=== PATIENT | female | born 1955 | race African-American/Black ===

== ENCOUNTER 2016-09-27 08:54 | Inpatient (IN) | payer MEDICARE, OTHER ==
--- NOTE | ~2016-09-27 | CR106 ---
[facility] A Service of [facility] & [facility] RADIOLOGY TEXT RESULTS PATIENT: SHABNAM MCCARTY LOCATION: [place] [address] : [birth year] UNIT #: [id number] AGE: [address]: Ling Mendez MD SEX: F ORDER DR: [id number] [place] [id number] E MR#: [id number] Acc #: [id number] NAME: SHABNAM MCCARTY : 1955 SEX: F STUDY DATE/TIME: 09/27/2016 10:13 UNIT: SED ROOM: STUDY DESCRIPTION: CR Femur 2 Views Lt Attending Physician: Osvaldo Crowe Ordering Physician: Osvaldo Crowe Primary Care Physician: Karolina Ramesh A.P.R.N. MEDICAL IMAGING REPORT This report is preliminary unless electronic signature is present. EXAM Left femur series INDICATIONS Confusion with left leg pain today. PROCEDURE 5 views of the left femur COMPARISON 05/20/2016 FINDINGS No acute findings. Previous plate and screw fixation of left acetabulum and a left hip prosthesis in place. IMPRESSION No acute findings. Dictated by... Mazin Davis M.D. THIS IS AN ELECTRONICALLY VERIFIED REPORT Mazin Davis M.D. at 09/28/2016 9:43 AM Darwin TD: 09/27/2016 12:56 JOB #: [id number] MEDICAL IMAGING REPORT Page 1 of 1
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
--- NOTE | ~2016-09-27 | CO ---
Unit #: [id number] #: [id number] Patient: SHABNAM MCCARTY [id number] [address] [address] [id number] I MR#: [id number] NAME: SHABNAM MCCARTY. ROOM: [facility] Age: 61 Sex: F Admission Date: 09/27/2016 : 1955 Attending Physician: Ling Mendez M.D. Primary Care Physician: Karolina Ramesh A.P.R.N. Consultation Date: 09/28/2016 CONSULTATION REPORT CHIEF COMPLAINT Left lower extremity pain. HISTORY OF PRESENT ILLNESS Ms. Mccarty is a 61-year-old female who has been admitted with mental status changes after being found confused at home in her own urine, unable to ambulate. She had a positive alcohol tox screen. In the hospital, she has been complaining of pain in her left lower extremity which she states is the primary cause for her frequent falls and inability to ambulate reliably. Orthopedic consultation has been requested. The patient is currently seen and examined lying supine on her hospital bed. She complained of pain in her left lower extremity but is overall comfortable appearing. She states that the pain is worse with attempted weightbearing. It is relieved with rest, immobilization, and pain medication. The patient has been drinking daily lately. She reports history of depression as well as frequent falls. She ambulates with a cane or walker but still has difficulty. PAST MEDICAL HISTORY 1. COPD. 2. Hypertension. 3. Hyperlipidemia. PAST SURGICAL HISTORY 1. Intramedullary nailing of a right subtrochanteric femur fracture in 2011. 2. Status post left total hip arthroplasty as well as ORIF of acetabular fracture. 3. Status post ORIF, left tibial plateau fracture. 4. Status post closed treatment of long-leg cast of left distal femur fracture. 5. Colonoscopy with polypectomy in 2010. MEDICATIONS Home medications are reviewed and include: 1. Desyrel. 2. Zyloprim. 3. Gabapentin. 4. [place]. 5. Lipitor. 6. Bystolic. Unit #: [id number] #: [id number] Patient: SHABNAM MCCARTY 7. Lisinopril. SOCIAL HISTORY She lives at home. Recently, her son and grandchild moved in. She has been drinking daily. She has no tobacco or illicit drug use. ALLERGIES No known drug allergies. FAMILY HISTORY Noncontributory to current illness. REVIEW OF SYSTEMS Positive for depression, frequent falls, alcohol abuse, left lower extremity pain. PHYSICAL EXAMINATION GENERAL APPEARANCE: Appears older than stated age with significant muscle wasting of the lower extremities. PSYCHIATRIC: Awake, alert, and oriented to person, place, and time. HEENT: Normocephalic and atraumatic cranium. Pupils equal, round, and reactive to light. CARDIAC: Regular rate and rhythm. PULMONARY: No increased work of breathing. Symmetric chest rise. ABDOMEN: Soft, nontender, nondistended. NEUROLOGIC: Moves all extremities well. No focal deficits. Intact motor function L2-S1 in the bilateral lower extremities. SKIN: There are no overlying contusions, lacerations, or open injuries. VASCULAR: Her feet are warm and well perfused, brisk capillary refill. LYMPHATIC: There is no lymph edema or lymphadenopathy noted. MUSCULOSKELETAL: She has no pain with log rolling of the left lower extremity and internal and external rotation. There is no pain with passive range of motion of the knee. She has full range of motion of the knee essentially from full extension to 120 degrees of flexion. There is no obvious deformity both palpably and visibly over the patella. She has no pain with passive range of motion of the hip and hip flexion and internal/external rotation. She has marked muscle wasting and atrophy lower extremities. She is able to perform a straight leg raise independently off the bed without pain or difficulty. DIAGNOSTIC STUDIES IMAGING: Plain film radiographs reviewed of the left lower extremity. These demonstrate previous total hip arthroplasty with what appears to be an ORIF of the posterior wall fracture of the acetabulum. Additionally, she is status post ORIF of left tibial plateau fracture and has changes from a previous closed treatment of a left distal femur fracture. Despite this, all the hardware appears intact and unremarkable. There is no evidence of loosening of the arthroplasty or of any of the hardware in the tibia. Overall alignment is anatomic. IMPRESSION A 61-year-old female with history of alcohol abuse, significant muscle wasting with left lower extremity pain in the setting of prior multiple orthopedic interventions on the left lower extremity including left total hip replacement, open reduction internal fixation of the left acetabular posterior wall fracture, closed treatment of a left distal femur fracture, and open reduction internal fixation of left tibial plateau fracture all remotely. Unit #: [id number] #: [id number] Patient: SHABNAM MCCARTY PLAN Upon physical exam and radiographic review, all of her orthopedic hardware appears intact without any evidence of hardware related complications. The fractures are all well healed. She has a chronic deformity of the patella which may contribute to some of her pain. At the current time, there is no orthopedic indication for limited or protected weightbearing. She may weightbear as tolerated on the effected extremity. I think her pain most likely is related to her multiple prior surgical interventions. She would benefit most likely from postoperative rehab placement due to her profound muscle atrophy and need for assistive devices for ambulation. We will continue to follow the patient with you. Thank you for the consult. Dictated by... Darren Garcia M.D. SOLEDAD/rachell TD: 09/29/2016 15:53 JOB #: [id number] CONSULTATION REPORT Page 1 of 1 X Darren Garcia MD X CONSULTATION REPORT
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
--- NOTE | ~2016-09-27 | CO ---
Unit #: [id number] #: [id number] Patient: SHABNAM MCCARTY [id number] [address] [address] [id number] I MR#: [id number] NAME: SHABNAM MCCARTY. ROOM: 339 Age: 61 Sex: F Admission Date: 09/27/2016 : 1955 Attending Physician: Ling Mendez M.D. Primary Care Physician: Karolina Ramesh A.P.R.N. Consultation Date: 09/29/2016 CONSULTATION REPORT DISCUSSION Ms. Shabnam Mccarty is a 61-year-old female, seen on 09/29/2016 in room 339, bed 1 at [facility]. The patient was pleasant and cooperative, dressed neatly, sitting comfortably in chair. Reports that she is feeling better. Medication helping her. Denied any hallucination. The patient denied any complaints. The patient's vital signs; temperature 97.9, pulse 85, respirations 18, blood pressure 109/64, oxygen saturation 96%. MENTAL STATUS EXAMINATION General appearance; the patient dressed casually, sitting comfortably in chair. Attention span and concentration, fair. Speech, regular rate. Oriented in time, place, and person. Mood and affect were sad and dysphoric, but able to smile. Thought process, coherent. Thought content, the patient denied any thoughts of harming self or others. Denied any hallucination. Recent and remote memory, fair. Language, intact. Fund of knowledge, fair. Insight and judgment, fair to slightly impaired. DIAGNOSES 1. Alcohol use disorder, severe, F10.20. 2. Mood disorder, not otherwise specified, F32.9. ASSESSMENT/PLAN 1. Supportive psychotherapy and psychoeducation provided to the patient. 2. Educated about benefits and side effects of medication and course and prognosis of illness. 3. Advised to continue with current medication and advised the patient to follow up at [facility] upon discharge. Please feel free to call if any questions telephone #[phone]. Dictated by... Thang Freedman M.D. JS/jeffry TD: 09/29/2016 23:54 JOB #: [id number] Unit #: [id number] #: [id number] Patient: SHABNAM MCCARTY CONSULTATION REPORT Page 1 of 1 X Thang Freedman MD CONSULTATION REPORT
--- NOTE | ~2016-09-27 | EKG ---
PATIENT: SHABNAM MCCARTY UNIT #: [id number] Ventricular Rate: 125 BPM Atrial Rate: 125 BPM P-R Interval: 126 ms QRS Duration: 86 ms Q-T Interval: 332 ms QTC Calculation(Bezet): 479 ms P [place]: 65 degrees Calculated R [place]: 45 degrees Calculated T [place]: 36 degrees Diagnosis Line: Sinus tachycardia Diagnosis Line: Left ventricular hypertrophy with repolarization Diagnosis Line: abnormality Diagnosis Line: Abnormal ECG Diagnosis Line: When compared with ECG of 10-APR-2016 19:37, Diagnosis Line: No significant change was found Diagnosis Line: Confirmed by MONICA MCADAMS MD ([id number]) on Diagnosis Line: 09/28/2016 7:18:36 AM INTERPRETING MD: PAULA
--- NOTE | ~2016-09-27 | OR ---
Unit #: [id number] #: [id number] Patient: SHABNAM MCCARTY [id number] [address] [address] [id number] I MR#: [id number] NAME: SHABNAM MCCARTY. ROOM: [facility] Date of Procedure: 09/28/2016 Admission Date: 09/27/2016 Surgeon: Jose Rafael Soto M.D. : 1955 Attending Physician: Ling Mendez M.D. Primary Care Physician: Karolina Ramesh A.P.R.N. OPERATIVE REPORT PREOPERATIVE DIAGNOSIS Coffee-ground emesis. POSTOPERATIVE DIAGNOSIS Coffee-ground emesis. PROCEDURES PERFORMED 1. Esophagogastroduodenoscopy. 2. Biopsy of antrum for Helicobacter pylori testing. ANESTHESIA Monitored anesthesia care. FINDINGS The patient was found to have mild duodenitis and mild gastritis. No blood was present in the stomach or duodenum. SPECIMENS Sent to pathology. COMPLICATIONS None apparent. CONDITION The patient tolerated the procedure well. INDICATIONS FOR PROCEDURE The patient is a 60-year-old black female who recently had coffee-grounds emesis. She presents at this time for evaluation by upper endoscopy. DESCRIPTION OF PROCEDURE After obtaining informed consent, the patient was brought to the endoscopy suite and after adequate monitored anesthesia care, I had the endoscope placed through the mouth and into the upper esophagus under direct vision. It was advanced to the second portion of the duodenum without difficulty with the lumen always in view. Second and third portion of the duodenum had some mild duodenitis as was the duodenal bulb, but no other abnormalities were seen. The pylorus opened normally. There was some mild distal gastritis present and a biopsy was obtained for Helicobacter pylori testing. On retroflexion back to the GE junction, no abnormalities were found in the proximal third, middle third, or incisura. On pulling back above the GE junction, there was no stenosis, stricture, or neoplasm Unit #: [id number] #: [id number] Patient: SHABNAM MCCARTY seen. There was no distal esophagitis. The remaining portion of the esophagus was within normal limits. Laryngeal structures were grossly normal as viewed from above. The patient tolerated the procedure well and went from the endoscopy suite to recovery area in stable condition. RECOMMENDATIONS Resume preop orders and medications. Continue omeprazole. Dictated by... Maritza Laguna/jeffry TD: 09/28/2016 14:46 JOB #: [id number] CC: [facility] OPERATIVE REPORT Page 1 of 1 X Jose Rafael Soto MD X PROCEDURE OPERATIVE NOTE
--- NOTE | ~2016-09-27 | CT71 ---
[facility] A Service of [facility] & [facility] RADIOLOGY TEXT RESULTS PATIENT: SHABNAM MCCARTY LOCATION: [place] [address]- : [birth year] UNIT #: [id number] AGE: [address]: Ling Mendez MD SEX: F ORDER DR: [id number] [place] [id number] E MR#: [id number] Acc #: [id number] NAME: SHABNAM MCCARTY : 1955 SEX: F STUDY DATE/TIME: 09/27/2016 10:02 UNIT: SED ROOM: STUDY DESCRIPTION: CT Head Wo Contrast Attending Physician: Osvaldo Crowe Ordering Physician: Osvaldo Crowe Primary Care Physician: Karolina Ramesh A.P.R.N. MEDICAL IMAGING REPORT This report is preliminary unless electronic signature is present. EXAM CT head without contrast INDICATIONS Confusion today. PROCEDURE Unenhanced CT of the head COMPARISON 08/19/2011 FINDINGS No acute hemorrhage, abnormal mass effect, extraaxial collection or hydrocephalus. No convincing evidence for acute or early subacute large territory infarct. No calvarial fracture. Paranasal sinuses and mastoid air cells are clear. IMPRESSION No acute intracranial findings. Dictated by... Mazin Davis M.D. THIS IS AN ELECTRONICALLY VERIFIED REPORT Mazin Davis M.D. at 09/28/2016 9:43 AM FLORA/camryn TD: 09/27/2016 12:54 JOB #: [id number] MEDICAL IMAGING REPORT Page 1 of 1
--- NOTE | ~2016-09-27 | CR72 ---
[facility] A Service of [facility] & [facility] RADIOLOGY TEXT RESULTS PATIENT: SHABNAM MCCARTY LOCATION: [place] [address] : [birth year] UNIT #: [id number] AGE: [address]: Ling Mendez MD SEX: F ORDER DR: [id number] [place] [id number] E MR#: [id number] Acc #: [id number] NAME: SHABNAM MCCARTY : 1955 SEX: F STUDY DATE/TIME: 09/27/2016 10:13 UNIT: SED ROOM: STUDY DESCRIPTION: CR Chest Single View Portable Attending Physician: Osvaldo Crowe Ordering Physician: Osvaldo Crowe Primary Care Physician: Karolina Ramesh A.P.R.N. MEDICAL IMAGING REPORT This report is preliminary unless electronic signature is present. EXAM Portable chest. INDICATIONS Confusion today. PROCEDURE Frontal view chest. COMPARISON 03/02/2012 FINDINGS Heart size stable. Stable elevated left hemidiaphragm. There is no new dense consolidation or pneumothorax. IMPRESSION No acute change from 03/02/2012. Dictated by... Mazin Davis M.D. THIS IS AN ELECTRONICALLY VERIFIED REPORT Mazin Davis M.D. at 09/28/2016 9:43 AM FLORA/camryn TD: 09/27/2016 12:58 JOB #: [id number] MEDICAL IMAGING REPORT Page 1 of 1
--- NOTE | ~2016-09-27 | DS ---
Unit #: [id number] #: [id number] Patient: SHABNAM MCCARTY [id number] [address] [address] [id number] I MR#: [id number] NAME: SHABNAM MCCARTY. ROOM: 339 Age: 61 Sex: F Admission Date: 09/27/2016 : 1955 Discharge Date: 09/29/2016 Attending Physician: Ling Mendez M.D. Primary Care Physician: Karolina Ramesh A.P.R.N. DISCHARGE SUMMARY FINAL DIAGNOSES 1. Coffee-ground emesis. Status post EGD which shows mild duodenitis and mild gastritis. Patient was seen by [facility] and had an EGD done. Findings are as above. Patient is being placed on proton pump inhibitor. The patient's hemoglobin is stable, it is 10.0 and she had thrombocytopenia. There is a possibility of thrombocytopenia secondary to alcohol abuse that may need to be observed as outpatient. 2. Alcohol abuse. Patient on admission was placed in alcohol withdrawal protocol. The patient's alcohol level was above 200. Patient has been advised. Counseling has been done. Dr. Freedman evaluated the patient. Patient has been started on thiamine and folic acid. She does verbalize understanding. 3. Hypertension. Seems to be stable. The patient's medications were adjusted during hospitalization. Please refer to med rec. 4. Depression. Patient was seen by Dr. Thang Freedman for alcohol abuse/withdrawal and depression. Patient was diagnosed with alcohol use disorder, severe and mood disorder. Patient was started on Celexa 20 mg daily for depression and Vistaril 25 mg t.i.d. for anxiety. Patient did receive Haldol during hospitalization for psychosis. Some of the medications are being continued. Patient may need to follow up with psychiatrist as outpatient. 5. Altered mental status. Patient did have confusion and altered mental status on admission. There is a possibility that was secondary to alcohol intoxication. 6. Chronic obstructive pulmonary disease which is stable during hospitalization. 7. Left lower extremity. Patent did complain of left lower extremity pain. She had multiple surgeries in the lower extremities. She was seen by Orthopedics during hospitalization and advised to continue PT/OT. PT/OT needs to be continued as an outpatient. PT/OT has evaluated the patient. Patient is at her functional baseline. She will need to use cane or walker at home. That was discussed with patient. CONSULTATIONS DURING HOSPITALIZATION 1. Dr. Jose Rafael Soto from surgery services. 2. Dr. Thang Freedman from psych services 3. Dr. Garcia from ortho services. PROCEDURE PERFORMED DURING HOSPITALIZATION EGD which showed mild duodenitis and mild gastritis. No blood was present in the stomach or duodenum. Unit #: [id number] #: [id number] Patient: SHABNAM MCCARTY DIAGNOSTIC STUDIES LABORATORY: Workup on discharge: Sodium 136, potassium 3.7, Chloride 107, BUN 6, creatinine 0.6, calcium 8.6; CBC shows WBC 8.6, hemoglobin 10.0, hematocrit 31.4 and a platelet count of 67. RPR was nonreactive. Urine culture count less than 10,000. TSH showed 0.41. Troponin 0.03. Ammonia 38 on admission. Please note patient did receive IV Rocephin during hospitalization because there was a question of UTI. Patient had 2+ bacteria. All the urine culture is negative and that has been discontinued. PHYSICAL EXAMINATION ON DISCHARGE VITAL SIGNS: Blood pressure 109/64. Respiratory rate 18. Pulse is 85. Temperature 97.9. CHEST: Has fair air entry, no additional sounds. CVS: Regular rhythm. ABDOMEN: Abdomen is soft, no tenderness. DISCHARGE INSTRUCTIONS 1. Patient is being discharged home in stable condition. 2. Home health services are consulted for home care, PT, OT at home. 3. Follow up with primary care provider in one week. 4. CBC and BMP to be done in one week. 5. Alcohol cessation counseling has been done. DISCHARGE MEDICATIONS 1. Folic acid 1 mg p.o. daily. 2. Thiamin 100 mg p.o. daily, 3. Desyrel 50 mg q.h.s. 4. Celexa 20 mg q.h.s. 5. Neurontin 300 mg q.i.d. 6. Vistaril 25 mg t.i.d. p.r.n. 7. Protonix 40 mg daily. 8. Hydrocodone continue home dose. 9. Zyloprim continue home dose. 10. Zestril 10 mg daily. 11. Lipitor continue home dose. 12. Bystolic 10 mg daily. Dictated by... Maritza Kang/evangelina TD: 09/29/2016 21:05 JOB #: [id number] Unit #: [id number] #: [id number] Patient: BIBIANASHABNAM B DISCHARGE SUMMARY Page 1 of 1 X Ling Mendez MD X DISCHARGE SUMMARY
--- NOTE | ~2016-09-27 | EKG ---
PATIENT: SHABNAM MCCARTY UNIT #: [id number] Ventricular Rate: 114 BPM Atrial Rate: 114 BPM P-R Interval: 130 ms QRS Duration: 84 ms Q-T Interval: 328 ms QTC Calculation(Bezet): 452 ms P Honeydew: 57 degrees Calculated R Honeydew: 54 degrees Calculated T Honeydew: 70 degrees Diagnosis Line: Improper precordial lead postitioning Diagnosis Line: Sinus tachycardia Diagnosis Line: Left ventricular hypertrophy Diagnosis Line: Abnormal ECG Diagnosis Line: When compared with ECG of 10-APR-2016 19:37, Diagnosis Line: Repeat ECG Diagnosis Line: Confirmed by MONICA MCADAMS MD ([id number]) on Diagnosis Line: 09/29/2016 6:40:07 AM INTERPRETING SHARMAINE MITCHELL
--- NOTE | ~2016-09-27 | CO ---
Unit #: [id number] #: [id number] Patient: SHABNAM MCCARTY [id number] [facility]. [place], [place] [address] [id number] I MR#: [id number] NAME: SHABNAM MCCARTY. ROOM: 339 Age: 61 Sex: F Admission Date: 09/27/2016 : 1955 Attending Physician: Ling Mendez M.D. Primary Care Physician: Karolina Ramesh A.P.R.N. Consultation Date: 09/27/2016 CONSULTATION REPORT REASON FOR ADMISSION Alcohol abuse, withdrawal. HISTORY OF PRESENT ILLNESS Ms. Shabnam Mccarty is a 61-year-old female seen in room 339, bed 1 at [facility] on 09/27/16. Patient was admitted with confusion and altered mental status. Patient came to the emergency room with altered mental status and confusion. Patient was found to be in her urine and would not ambulated. Patient admitted using alcohol on a daily basis. Patient reported feeling sad and depressed and drinking on a daily basis. Patient denied any use of any street drugs. Patient has a history of COPD, hypertension, and hyperlipidemia. Patient denied any suicidal or homicidal ideation. Denied any psychotic symptoms, except seeing objects in her peripheral vision. PAST PSYCHIATRIC HISTORY Remarkable for a history of depression and alcohol abuse. No history of any suicide attempts. MEDICAL HISTORY Remarkable for history of COPD, hypertension, hyperlipidemia, and left distal femoral fracture in April 2015. MEDICATIONS Patient is on: 1. Desyrel. 2. Zyloprim. 3. Gabapentin. 4. [place]. 5. Lipitor. FAMILY HISTORY AND SOCIAL HISTORY Patient reported that she has support from her family. No history of any abuse. History of alcohol abuse, against medical advice. Denied any use of any street drugs. Patient's urine drug screen was positive for opiates. Patient is prescribed [place]. REVIEW OF SYSTEMS Complete review of systems is remarkable for withdrawal symptoms from alcohol, anxiety, nervousness, shakiness, tremors, mood lability, anxiety, and depression. MENTAL STATUS EXAMINATION VITAL SIGNS: 99.3, 18, 122/64, height ____, oxygen saturation 95%. Unit #: [id number] #: [id number] Patient: SHABNAM MCCARTY GENERAL APPEARANCE: Patient dressed casually in hospital attire. ATTENTION SPAN AND CONCENTRATION: Fair. SPEECH: Regular rate, coherent. ORIENTATION: Oriented in time, place, and person. MOOD AND AFFECT: Sad, dysphoric. THOUGHT PROCESS: Coherent. THOUGHT CONTENT: Patient denied any thoughts of harming self or others, but having visual hallucinations. Denied any auditory hallucinations. RECENT AND REMOTE MEMORY: Fair. LANGUAGE: Intact. FUND OF KNOWLEDGE: Fair. INSIGHT AND JUDGEMENT: Fair to slightly impaired. DIAGNOSES PSYCHIATRIC 1. Alcohol use disorder, severe, F10.20. 2. Mood disorder, NOS, F32.9. SECONDARY DIAGNOSIS: Deferred. MEDICAL DIAGNOSIS: Please refer to H and P. STRESSORS: Psychosocial stressors. ASSESSMENT/PLAN 1. Supportive psychotherapy and psychoeducation provided to patient. 2. Educated about benefits and side effects of medication and course and prognosis of illness. Advised Celexa 20 mg daily for depression, trazodone 50 mg at bedtime for sleep, Vistaril 25 mg 3 times a day for anxiety, and haloperidol 2 mg twice daily for psychosis. We will continue to follow. Please feel free to call if any questions. Telephone number . Dictated by... Maritza Leary/gerald TD: 09/29/2016 08:54 JOB #: [id number] CONSULTATION REPORT Page 1 of 1 X Thang Freedman MD X CONSULTATION REPORT
[~2016-09-27 08:54] MED LIST: ALPRAZOLAM PO; ASPIRIN PO; ASPIRIN81 M1 PO; BACLOFEN10 MG PO; BYSTOLIC10 MG PO; CIPRO250 MG PO; CRESTOR PO; DESYREL50 M1 PO; DESYREL50 MG; FLAGYL PO; FLEXERIL10 MG PO; GABAPENTIN300 M2 PO; GABAPENTIN300 MG PO; HCTZ PO; HYDROCODON-ACE1 EAC4 PO; IBUPROFEN800 MG; IBUPROFEN800 MG PO; LIPITOR PO; LISINOPRIL-HCTZ1 T16 PO; LISINOPRIL20 MG PO; LORTAB 10-5001 EACH PO; LORTAB 10/500 T1 TAB PO; LORTAB 5/500 TA1 TA1 PO; METHYLPREDNISOLO4 MG PO; NAPROXEN SODIU500 MG PO; NEURONTIN PO; NEURONTIN300 MG PO; NORCO 10-325 TA1 TAB PO; NORCO 10/325 TA1 TAB PO; NORCO 10/3251 TAB PO; PRAVACHOL PO; PRAVACHOL80 MG PO; PRAVASTATIN SOD40 MG PO; PRINIVIL20 M1 PO; TRAZODONE; ULTRAM PO; VIBRAMYCIN100 M1 PO; VICODIN 5/1 TAB 5/50 PO; ZESTORETIC 20/21 TAB PO; ZYLOPRIM
[2016-09-27 09:26] LABS: BASOPHIL# 0.1 X10e3 (0-0.3); BASOPHIL% 1.4 % (0-2.5); EOSINOPHIL% 0.2 % (0.0-7.0); HEMATOCRIT 38.5 % (35.0-45.0); HEMOGLOBIN 12.2 gm/dL (12.0-16.0); LYMPHOCYTE# 1.7 X10e3 (1.0-3.5); LYMPHOCYTE% 20.9 % (17.0-45.0); MEAN CELL VOLUME 90.9 FL (83-96); MEAN CORPUSCULAR HEMOGLOBIN 28.9 PG (28-34); MEAN CORPUSCULAR HGB CONC 31.8 g/dL (30-36); MEAN PLATELET VOLUME 7.4 FL (6.5-11.5); MONOCYTE# 0.4 X10e3 (0-1.0); NEUTROPHIL# 5.9 X10e3 (1.5-7.1); NEUTROPHIL% 72.5 % (40-75); PLATELET COUNT 124 X10e3 (140-420); RED BLOOD COUNT 4.23 X10e (3.90-5.30); RED CELL DISTRIBUTION WIDTH 22.5 % (11.0-15.5); WHITE BLOOD COUNT 8.1 X10e3 (4.0-10.5)
[2016-09-27 09:29] LABS: DIFF IND NO
[2016-09-27 09:41] LABS: INR 0.9; PROTHROMBIN TIME (PATIENT) 9.6 SECONDS (9.5-12.4)
[2016-09-27 09:42] LABS: POC - CKMB 1.3 ng/mL (0.0-7.9); POC - TROPONIN <0.05 ng/mL (<=0.05)
[2016-09-27 09:51] LABS: URINE SOURCE CLEAN CATCH
[2016-09-27 09:52] LABS: ALBUMIN SERUM 4.3 g/dL (3.5-5.0); ALKALINE PHOSPHATASE 76 U/L (32-92); ALT (SGPT) 12 U/L (10-40); AST (SGOT) 26 U/L (10-42); BILIRUBIN, DIRECT 0.3 mg/dL (0.0-0.2); BILIRUBIN,INDIRECT 0.7 mg/dL (0.0-0.9); BLOOD UREA NITROGEN 14 mg/dL (9-23); CALCIUM SERUM 8.8 mg/dL (8.4-10.2); CARBON DIOXIDE 18 mmol/L (22-31); CHLORIDE 100 mmol/L (100-111); CREATININE SERUM 0.7 mg/dL (0.6-1.4); GLOM FILT RATE Estimated 106.9 mL/min (>60); GLUCOSE FASTING 71 mg/dL (70-110); SALICYLATE <4.0 mg/dL; SODIUM 138 mmol/L (135-145)
[2016-09-27 09:56] LABS: ACETAMINOPHEN <10 ug/mL
[2016-09-27 09:57] LABS: MICRO INDICATED? YES; URINE APPEARANCE CLEAR; URINE BILIRUBIN NEG (NEG); URINE BLOOD TRACE-LYSED (NEG); URINE COLOR YELLOW; URINE GLUCOSE NEG (NORM); URINE KETONE 1+ (NEG); URINE LEUKOCYTE ESTERASE 2+ (NEG); URINE NITRATE NEG (NEG); URINE PH 6.5 (5-8); URINE PROTEIN TRACE (NEG); URINE UROBILINOGEN 0.2 MG/DL (NORM)
[2016-09-27 09:57] LABS: ALCOHOL BLOOD 268 mg/dL ([, 0])
[2016-09-27 10:07] LABS: AMPHETAMINE NEG (NEG); BARBITURATES NEG (NEG); BENZODIAZEPINES NEG (NEG); COCAINE NEG (NEG); CULTURE INDICATED? YES; MARIJUANA NEG (NEG); OPIATES POS (NEG); TRICYCLIC ANTIDEPRESSANTS NEG (NEG); U METHADONE NEG (NEG); URINE BACTERIA 2+ (NEG); URINE SQUAMOUS EPITHELIAL CELL MODERATE /[HPF]; URINE WBC 25-50 /[HPF] (0-5)
[2016-09-27 11:02] LABS: MAGNESIUM 2.2 mg/dL (1.6-3.0); PHOSPHOROUS 2.3 mg/dL (2.5-4.6)
[2016-09-27 19:01] LABS: HEMATOCRIT 33.6 % (35.0-45.0); HEMOGLOBIN 10.5 gm/dL (12.0-16.0); MEAN CELL VOLUME 91.6 FL (83-96); MEAN CORPUSCULAR HEMOGLOBIN 28.7 PG (28-34); MEAN CORPUSCULAR HGB CONC 31.3 g/dL (30-36); MEAN PLATELET VOLUME 8.3 FL (6.5-11.5); RED BLOOD COUNT 3.67 X10e (3.90-5.30); RED CELL DISTRIBUTION WIDTH 22.4 % (11.0-15.5); WHITE BLOOD COUNT 11.3 X10e3 (4.0-10.5)
[2016-09-27 19:06] LABS: CK TOTAL 53 IU/L (26-140)
[2016-09-27 19:12] LABS: PROTHROMBIN TIME (PATIENT) 10.5 SECONDS (9.6-11.5)
[2016-09-27 19:20] LABS: THYROID STIMULATING HORMONE 0.41 uIU/ml (0.34-5.60)
[2016-09-27 19:25] LABS: ALBUMIN SERUM 3.8 g/dL (3.5-5.0); BILIRUBIN,TOTAL 1.3 mg/dL (0.2-2.0); BUN/CREATININE RATIO 22.85; CALCIUM SERUM 8.5 mg/dL (8.4-10.2); CREATININE SERUM 0.7 mg/dL (0.6-1.4); GLOM FILT RATE Estimated 106.9 mL/min (>60); POTASSIUM 3.4 mmol/L (3.5-5.1); PROTEIN TOTAL SERUM 7.2 g/dL (6.0-8.3)
[2016-09-27 19:27] LABS: FREE THYROXIN (T4) 0.59 ng/dL (0.58-1.64)
[2016-09-29 06:23] LABS: HEMATOCRIT 31.4 % (35.0-45.0); MEAN CELL VOLUME 91.2 FL (83-96); MEAN CORPUSCULAR HGB CONC 31.8 g/dL (30-36); MEAN PLATELET VOLUME 8.1 FL (6.5-11.5); RED BLOOD COUNT 3.44 X10e (3.90-5.30); WHITE BLOOD COUNT 8.6 X10e3 (4.0-10.5)
[2016-09-29 08:10] LABS: CALCIUM SERUM 8.6 mg/dL (8.4-10.2); CREATININE SERUM 0.4 mg/dL (0.6-1.4); GLOM FILT RATE Estimated 128.5 mL/min (>60); POTASSIUM 3.7 mmol/L (3.5-5.1)
[2016-09-29] MEDS ORDERED: PROTONIX PO (13:28)
[2016-09-29] MEDS ORDERED: HYDROXYZINE HCL25 M1 PO (13:29)
[2016-09-29] MEDS ORDERED: THIAMINE HCL100 M1 PO (13:30)
[2016-09-29] MEDS ORDERED: CELEXA20 MG PO (13:30)
[2016-09-29] MEDS ORDERED: FOLIC ACID1 MG PO (13:30)
== END 2016-09-29 14:05 | disposition home or self-care (01) | DRG 897 ==
LOC: SED 08:54 → CEDOF 12:26 → C3A PCU 14:30
PROVIDERS: Emergency Medicine; Physician Assistant Medical; Surgery
PROC: 0DB68ZX Excision of Stomach, Via Natural or Artificial Opening Endoscopic, Diagnostic (ICD-10-PCS; principal; 2016-09-28 13:57)
DX: F10.121 Alcohol abuse with intoxication delirium (principal); K92.0 Hematemesis; D69.59 Other secondary thrombocytopenia; Y90.8 Blood alcohol level of 240 mg/100 ml or more; K29.80 Duodenitis without bleeding; K29.70 Gastritis, unspecified, without bleeding; M62.562 Muscle wasting and atrophy, not elsewhere classified, left lower leg; M22.8X2 Other disorders of patella, left knee; J44.9 Chronic obstructive pulmonary disease, unspecified; I10 Essential (primary) hypertension; E78.5 Hyperlipidemia, unspecified; F32.9 Major depressive disorder, single episode, unspecified; Z96.642 Presence of left artificial hip joint; Z79.899 Other long term (current) drug therapy; Z72.0 Tobacco use; Z91.81 History of falling
CPT/HCPCS: 36415; 51702; 70450; 71010; 73552; 80048; 80053; 80076; 80307; 81003; 82140; 82550; 82553; 83735; 84100; 84439; 84443; 84484; 85025; 85027; 85610; 86592; 87077; 87086; 93005; 96360; 96365; 97162; 99283; 99284; 99285; C9113; G0480; G8978-GP; G8979-GP; G8980-GP; J0696; J1650; J2405; J3411; J3475

== ENCOUNTER 2016-10-21 18:59 | Emergency (ER) | payer MEDICARE, OTHER ==
[~2016-10-21 18:59] MED LIST changes: +CELEXA20 MG PO; +FOLIC ACID1 MG PO; +HYDROXYZINE HCL25 M1 PO; +PROTONIX PO; +THIAMINE HCL100 M1 PO
== END 2016-10-21 20:40 | disposition home or self-care (01) ==
LOC: CED 18:59
DX: F10.129 Alcohol abuse with intoxication, unspecified (principal); K21.9 Gastro-esophageal reflux disease without esophagitis; I10 Essential (primary) hypertension; Z79.891 Long term (current) use of opiate analgesic; Z79.899 Other long term (current) drug therapy; Y90.9 Presence of alcohol in blood, level not specified
CPT/HCPCS: 99282

== ENCOUNTER 2016-10-27 13:05 | Emergency (ER) | payer MEDICARE, OTHER ==
--- NOTE | ~2016-10-27 | CR281 ---
[facility] A Service of [facility] RADIOLOGY TEXT RESULTS PATIENT: SHABNAM MCCARTY LOCATION: SED : 53 UNIT #: [id number] AGE: [address]: Leonarda Morales SEX: F ORDER DR: [id number] [place] [id number] E MR#: [id number] Acc #: [id number] NAME: SHABNAM MCCARTY : 1955 SEX: F STUDY DATE/TIME: 10/27/2016 UNIT: SED ROOM: STUDY DESCRIPTION: CR Wrist Min 3 View Lt Attending Physician: Leonarda Morales Pa-C Ordering Physician: Tawanda Estrada M.D. Primary Care Physician: Karolina Ramesh A.P.R.N. MEDICAL IMAGING REPORT This report is preliminary unless electronic signature is present. EXAM Left wrist 3 views 10/27/2016 1320 hours. HISTORY 61-year-old with posterior wrist pain and swelling. Patient awoke with pain today. No reported injury. COMPARISON None FINDINGS AP, lateral and oblique views demonstrate osteopenia. There is joint space loss at the radiocarpal joint with diffuse chondrocalcinosis. There is soft tissue calcification dorsal to the proximal carpal row with overlying soft tissue swelling on the lateral film. There is no definite fracture or erosive change. IMPRESSION There is joint space loss in the radiocarpal row with diffuse chondrocalcinosis and soft tissue calcifications projecting dorsally to the proximal carpal row with overlying soft tissue swelling. There is no fracture or erosive change seen. STAT * RESULT Dictated by... Unique Burch M.D. THIS IS AN ELECTRONICALLY VERIFIED REPORT Unique Burch M.D. at 10/27/2016 2:30 PM [facility] A Service of [facility] & [facility] RADIOLOGY TEXT RESULTS PATIENT: SHABNAM MCCARTY LOCATION: [facility] : 53 UNIT #: [id number] AGE: [address]: Leonarda Morales SEX: F ORDER DR: Gian TD: 10/27/2016 14:03 JOB #: [id number] MEDICAL IMAGING REPORT Page 1 of 1
== END 2016-10-27 14:08 | disposition home or self-care (01) ==
LOC: SED 13:05
DX: M10.9 Gout, unspecified (principal); E78.5 Hyperlipidemia, unspecified; I10 Essential (primary) hypertension; Z90.710 Acquired absence of both cervix and uterus; F17.200 Nicotine dependence, unspecified, uncomplicated; Z79.899 Other long term (current) drug therapy
CPT/HCPCS: 73110; 99283

== ENCOUNTER 2016-11-25 15:13 | Emergency (ER) | payer MEDICARE, OTHER ==
--- NOTE | ~2016-11-25 | CT71 ---
[facility] A Service [facility] RADIOLOGY TEXT RESULTS PATIENT: SHABNAM MCCARTY LOCATION: SED : 53 UNIT #: [id number] AGE: [address]: Marisa Palmer MD SEX: F ORDER DR: [id number] [place] [address] [id number] E MR#: [id number] Acc #: [id number] NAME: SHABNAM MCCARTY : 1955 SEX: F STUDY DATE/TIME: 11/25/2016 16:24 UNIT: SED ROOM: STUDY DESCRIPTION: CT Head Wo Contrast Attending Physician: Jordi Hassan M.D. Ordering Physician: Jordi Hassan M.D. Primary Care Physician: Karolina Ramesh A.P.R.N. MEDICAL IMAGING REPORT This report is preliminary unless electronic signature is present. EXAM Noncontrast CT head DATE 11/25/2016 HISTORY Fell today, neck pain, intoxicated. Hypertension. COMPARISON Noncontrast CT of the head 09/27/[address] exam was performed with one or more of the following radiation dose reduction techniques: automatic exposure control, adjustment of mA and/or kV according to patient size, and iterative reconstruction. FINDINGS There is mild generalized parenchymal atrophy with compensatory prominence of ventricles and extraaxial spaces. No acute intracranial hemorrhage, mass lesion, mass effect, midline shift or acute evolving infarct. Paranasal sinuses and mastoid air cells are clear and the calvarium is within normal limits. IMPRESSION No acute intracranial findings. Dictated by... Cassandra Valle M.D. THIS IS AN ELECTRONICALLY VERIFIED REPORT Cassandra Valle M.D. at 11/26/2016 8:36 AM [facility] A Service [facility] RADIOLOGY TEXT RESULTS PATIENT: SHABNAM MCCARTY LOCATION: SED : 53 UNIT #: [id number] AGE: [address]: Marisa Palmer MD SEX: F ORDER DR: MARQUES/tim TD: 11/25/2016 18:25 JOB #: [id number] MEDICAL IMAGING REPORT Page 1 of 1
--- NOTE | ~2016-11-25 | CR181 ---
[facility] A Service [facility] RADIOLOGY TEXT RESULTS PATIENT: SHABNAM MCCARTY LOCATION: SED : 53 UNIT #: [id number] AGE: [address]: Marisa Palmer MD SEX: F ORDER DR: [id number] [place] [id number] E MR#: [id number] Acc #: [id number] NAME: SHABNAM MCCARTY : 1955 SEX: F STUDY DATE/TIME: 11/25/2016 16:39 UNIT: SED ROOM: STUDY DESCRIPTION: CR Lumbar Spine 2 or 3 Views Attending Physician: Jordi Hassan M.D. Ordering Physician: Jordi Hassan M.D. Primary Care Physician: Karolina Ramesh A.P.R.N. MEDICAL IMAGING REPORT This report is preliminary unless electronic signature is present. EXAM 3 views of the lumbar spine 11/25/2016 HISTORY Fell today while walking. Back pain. Intoxicated. COMPARISON None. FINDINGS Study is limited due to under-penetration related to cross-table lateral views. No acute lumbar spine fracture or subluxation is seen. Facet arthropathy is thought to be present at L4-L5 and L5-S1. Left pelvic plate and screw fixation changes are present with presumed left hip replacement. IMPRESSION Limited evaluation secondary to relatively poor penetration on the cross-table lateral views. No acute lumbar spine findings are identified. Dictated by... Cassandra Valle M.D. THIS IS AN ELECTRONICALLY VERIFIED REPORT Cassandra Valle M.D. at 11/26/2016 8:36 AM LLH/pcl TD: 11/25/2016 17:36 JOB #: [id number] [facility] A Service [facility] RADIOLOGY TEXT RESULTS PATIENT: SHABNAM MCCARTY LOCATION: SED : 53 UNIT #: [id number] AGE: [address]: Marisa Palmer MD SEX: F ORDER DR: MEDICAL IMAGING REPORT Page 1 of 1
--- NOTE | ~2016-11-25 | CT98 ---
[facility] A Service of [facility] & [facility] RADIOLOGY TEXT RESULTS PATIENT: SHABNAM MCCARTY LOCATION: SED : 53 UNIT #: [id number] AGE: [address]: Marisa Palmer MD SEX: F ORDER DR: [id number] [address] [address] [id number] E MR#: [id number] Acc #: [id number] NAME: SHABNAM MCCARTY. : 1955 SEX: F STUDY DATE/TIME: 11/25/2016 19:06 UNIT: SED ROOM: STUDY DESCRIPTION: CT Lumbar Spine Wo Cont Attending Physician: Marisa Palmer M.D. Ordering Physician: Jordi Hassan M.D. Primary Care Physician: Venita HardingPChristinaRSmooth MEDICAL IMAGING REPORT This report is preliminary unless electronic signature is present. EXAM CT lumbar spine without contrast HISTORY 61-year-old female fell today while walking. Complains of back pain. Patient heavily intoxicated. COMPARISON CT abdomen and pelvis 08/19/2011 FINDINGS Thin section axial images form through the lumbar spine without contrast. Multiplanar reconstructed images reviewed at a workstation. This CT exam was performed with one or more of the following radiation dose reduction techniques: automatic control, adjustment of mA and/or kV according to patient size, and iterative reconstruction. Examination demonstrates superior endplate compression fracture T12 with approximately 15% loss of the central vertebral body height. This appears to represent a new fracture when compared to the 2012 CT and the imaging features along the superior endplate suggestive of an acute fracture. No disruption of the posterior vertebral line or retropulsed fragment. There is a chronic-appearing compression fracture at L3 unchanged from 2012. This represents about a 25% compression fracture of the superior endplate. Generalized osteopenia. No other fractures identified. Mild spinal stenosis lower lumbar spine due to the posterior disc bulging and facet arthropathy. Moderately advanced L4-5 and L5-S1 facet disease. SI joints unremarkable. Liver demonstrates diffuse fatty infiltration. Instrumentation is noted in the left hip from previous fracture fixation. IMPRESSION 1. Suspected acute superior endplate compression fracture of T12 with no more than 15% loss of the superior endplate height. This appears STS. [facility] A Service of [facility] RADIOLOGY TEXT RESULTS PATIENT: SHABNAM MCCARTY LOCATION: [facility] : 53 UNIT #: [id number] AGE: [address]: Marisa Palmer MD SEX: F ORDER DR: superimposed on generalized osteopenia. 2. Chronic L3 compression fracture unchanged from 2011. 3. Advanced L4-5, L5-S1 facet arthropathy. 4. Diffuse fatty liver. Dictated by... Juan David Bright M.D. THIS IS AN ELECTRONICALLY VERIFIED REPORT Juan David Bright M.D. at 11/26/2016 2:46 PM CARMEN/javier TD: 11/25/2016 19:43 JOB #: [id number] MEDICAL IMAGING REPORT Page 1 of 1
--- NOTE | ~2016-11-25 | CT52 ---
[facility] A Service of [facility] & [facility] RADIOLOGY TEXT RESULTS PATIENT: SHBANAM MCCARTY LOCATION: SED : 53 UNIT #: [id number] AGE: [address]: Marisa Palmer MD SEX: F ORDER DR: [id number] [place] [id number] E MR#: [id number] Acc #: [id number] NAME: SHABNAM MCCARTY : 1955 SEX: F STUDY DATE/TIME: 11/25/2016 15:22 UNIT: SED ROOM: STUDY DESCRIPTION: CT Cervical Spine Wo Cont Attending Physician: Jordi Hassan M.D. Ordering Physician: Jordi Hassan M.D. Primary Care Physician: Karolina Ramesh A.P.R.N. MEDICAL IMAGING REPORT This report is preliminary unless electronic signature is present. EXAM CT cervical spine without contrast 11/25/2016 HISTORY 61-year-old female with back pain and neck pain after falling today. Intoxicated. COMPARISON CT cervical spine without contrast 08/19/2011. TECHNIQUE Normal noncontrast axial images through the cervical spine. Sagittal and coronal reformatted images were obtained. This CT exam was performed with one or more of the following radiation dose reduction techniques: automatic exposure control, adjustment of mA and/or kV according to patient size, and iterative reconstruction. FINDINGS Some of the images are degraded by patient motion. Advanced diminished disc height is present at c5-c6 and C6-C7 with anterior and posterior osteophyte formation. Moderate diminished disc height is present at C4-C5. Craniocervical junction is intact. No acute vertebral body fracture or subluxation is identified. Mild posterior osteophyte formation at C3-C4 with mild canal stenosis. Broad-based posterior osteophyte formation at C4-C5 with spmm-tq-tobziwio canal stenosis. Broad-based disc osteophyte formation, uncovertebral spurring at C5-C6 with ndypf-vp-qcsrvlim canal stenosis and severe right, moderate left neural foraminal narrowing. Posterior disc osteophyte formation is demonstrated centrally at C6-C7 with moderate central canal stenosis and moderate right, zrrs-tp-yxvxqkjo left neural foraminal narrowing. [facility] A Service of [facility] & [facility] RADIOLOGY TEXT RESULTS PATIENT: SHABNAM MCCARTY LOCATION: [facility] : 53 UNIT #: [id number] AGE: [address]: Marisa Palmer MD SEX: F ORDER DR: Imaged paraspinal soft tissues are within normal limits. Presumed surgical changes in the upper mediastinum. IMPRESSION 1. No acute cervical spine findings. Several of the images are degraded by patient motion. 2. Moderately advanced finished diminished disc height at C5-C6 and C6-C7 with lluqajhp-mf-qmqfue C5-C6, moderate C6-C7 canal stenosis. Severe right C5-C6 neural foramen narrowing. Dictated by... Cassandra Valle M.D. THIS IS AN ELECTRONICALLY VERIFIED REPORT Cassandra Valle M.D. at 11/26/2016 8:36 AM MARQUES/loli TD: 11/25/2016 17:27 JOB #: [id number] MEDICAL IMAGING REPORT Page 1 of 1
[2016-11-25 15:52] LABS: BASOPHIL# 0.1 X10e3 (0-0.3); BASOPHIL% 1.2 % (0-2.5); EOSINOPHIL% 0.2 % (0.0-7.0); HEMATOCRIT 42.3 % (35.0-45.0); LYMPHOCYTE# 2.4 X10e3 (1.0-3.5); LYMPHOCYTE% 31.9 % (17.0-45.0); MEAN CELL VOLUME 93.5 FL (83-96); MEAN CORPUSCULAR HGB CONC 33.2 g/dL (30-36); MEAN PLATELET VOLUME 8.2 FL (6.5-11.5); MONOCYTE# 0.2 X10e3 (0-1.0); NEUTROPHIL# 4.8 X10e3 (1.5-7.1); NEUTROPHIL% 63.7 % (40-75); PLATELET COUNT 119 X10e3 (140-420); RED BLOOD COUNT 4.53 X10e (3.90-5.30); RED CELL DISTRIBUTION WIDTH 16.8 % (11.0-15.5); WHITE BLOOD COUNT 7.6 X10e3 (4.0-10.5)
[2016-11-25 15:55] LABS: DIFF IND NO
[2016-11-25 16:43] LABS: BILIRUBIN,TOTAL 0.6 mg/dL (0.2-2.0); BUN/CREATININE RATIO 18.33; CALCIUM SERUM 9.3 mg/dL (8.4-10.2); CREATININE SERUM 0.6 mg/dL (0.6-1.4); GLOM FILT RATE Estimated 112.4 mL/min (>60); POTASSIUM 3.9 mmol/L (3.5-5.1); PROTEIN TOTAL SERUM 8.9 g/dL (6.0-8.3)
[2016-11-25 16:45] LABS: AMPHETAMINE NEG (NEG); BARBITURATES NEG (NEG); BENZODIAZEPINES NEG (NEG); COCAINE NEG (NEG); MARIJUANA NEG (NEG); OPIATES NEG (NEG); TRICYCLIC ANTIDEPRESSANTS NEG (NEG); U METHADONE NEG (NEG)
[2016-11-26] MEDS ORDERED: ZYLOPRIM100 MG PO (12:06)
[2016-11-26] MEDS ORDERED: BYSTOLIC10 MG PO (12:06)
[2016-11-26] MEDS ORDERED: DESYREL150 M1 PO (12:06)
[2016-11-26] MEDS ORDERED: PATIENT'S PHARMACY (12:06)
[2016-11-26] MEDS ORDERED: CELEXA20 MG PO (12:06)
[2016-11-26] MEDS ORDERED: GABAPENTIN300 M2 PO (12:07)
[2016-11-26] MEDS ORDERED: PANTOPRAZOLE SO40 MG PO (12:07)
== END 2016-11-26 00:28 | disposition home or self-care (01) ==
LOC: SED 15:13
PROVIDERS: Emergency Medicine
DX: S22.089A Unspecified fracture of T11-T12 vertebra, initial encounter for closed fracture (principal); S39.012A Strain of muscle, fascia and tendon of lower back, initial encounter; F10.129 Alcohol abuse with intoxication, unspecified; F17.200 Nicotine dependence, unspecified, uncomplicated; I10 Essential (primary) hypertension; W01.0XXA Fall on same level from slipping, tripping and stumbling without subsequent striking against object, initial encounter; Y92.9 Unspecified place or not applicable
CPT/HCPCS: 70450; 72100; 72125; 72131; 80053; 80307; 85025; 96361; 96374; 96375; 96376; 99284; G0480; J1885; J2060; J2405; J3010; J3411

== ENCOUNTER 2016-11-26 03:45 | Inpatient (IN) | payer MEDICARE, OTHER ==
--- NOTE | ~2016-11-26 | A ---
[facility] Nutrition Therapy DATE: 12/08/16 Patient: SHABNAM MCCARTY Physician: MANUEL Address: [address] Room/Bed: [address] [place] [address], Zip: [place] [address] Admit Date: 11/26/16 Date of : [birth year] Height: 5 4 Weight: 124 56.34 NUTRITIONAL ASSESSMENT: REASON: LOS ASSESSMENT PT IS 61 Y.O. FEMALE ADMITTED FOR BACK PAIN PMH: HTN, HLD, ANXIETY, ETOH ABUSE, CHRONIC BACK PAIN, PERFORATED COLON S/P COLECTOMY, COPD Anthropometrics: 5'4", WT: 123# (PER PT) (56 KG), BMI: 21.1 -WEIGHTS HAVE RANGED 119-132# SINCE ADMIT Labs: ALB: 5.2, AST: 54, PHOS: 2.3 (09/27/16) Meds: PREDNISONE, KCL, FOLIC ACID, THIAMINE, PROTONIX, NACL I/O & Bowel function: 2720/307, 2 BMs NOTED Skin Integrity: (L) ABD OLD OSTOMY; NO KNOWN SKIN ISSUES Assessment: CHART REVIEWED AND EVENTS NOTED. PT SEEN FOR LENGTH OF STAY (10 DAYS). PT REPORTS GOOD PO INTAKE AND APPETITE, NO C/O N/V/D. NOTES EATING "MOST OF HER MEALS". PT DENIES ANY CHEWING OR SWALLOWING DIFFICULTIES. PT DENIES ANY RECENT WEIGHT LOSS. RD ENCOURAGED HEALTHY CHOICES ON MENU, PT DEMONSTRATED UNDERSTANDING OF THE TOPIC. PT REPORTED NO DIET QUESTIONS. RD TO REMAIN AVAILABLE. Dx: ADEQUATE NUTRIENT INTAKE R/T GOOD APPETITE AEB PT REPORT ABOVE OF CONSUMING "MOST OF HER MEALS". Intervention: 1. REGULAR DIET Monitoring, Evaluation and Goals: 1. ORAL INTAKE; CONSUME >50% OF MEALS 2. WEIGHTS; PROMOTE WEIGHT MAINTENANCE 3. GI; PROMOTE REGULAR GI FUNCTION MONITOR: -PO INTAKE/APPETITE -WEIGHTS Recommendations: 1. RECOMMEND TO CHANGE CURRENT DIET ORDER TO HEALTHY HEART [facility]: 12[facility]08/16 Patient: SHABNAM MCCARTY Physician: MANUEL Address: [address] Room/Bed: [address] [place] [address], Zip: [place] [address] Admit Date: 11/26/16 Date of : [birth year] Height: 5 4 Weight: [address] WILL F/U PER PROTOCOL PT IS AT NO NUTRITION RISK Respectfully, SHI ZAIDI MS, RD, LD Food and Nutritional Services [facility] cc: client file
--- NOTE | ~2016-11-26 | CR72 ---
[facility] A Service of [facility] & [facility] RADIOLOGY TEXT RESULTS PATIENT: SHABNAM MCCARTY LOCATION: [facility] : 53 UNIT #: [id number] AGE: [address]: Maldonado Chance MD SEX: F ORDER DR: [id number] [facility] [address] [place], [place] [address] [id number] E MR#: [id number] Acc #: [id number] NAME: SHABNAM MCCARTY. : 1955 SEX: F STUDY DATE/TIME: 11/26/2016 8:11 UNIT: [facility] ROOM: STUDY DESCRIPTION: CR Chest Single View Portable Attending Physician: Maldonado Chance M.D. Ordering Physician: Maldonado Chance M.D. Primary Care Physician: Karolina Ramesh A.P.R.N. MEDICAL IMAGING REPORT This report is preliminary unless electronic signature is present EXAM Portable chest, 1 view, 11/26/16. COMPARISON 09/27/16. CLINICAL HISTORY Short of air for 1 day after fall. FINDINGS Redemonstrated elevated left hemidiaphragm and mild cardiomegaly. There are old left side healed fracture deformities of the ribs, but no convincing acute fracture is seen. There is no pneumothorax. There is no consolidation or effusion. Linear densities at both lung bases appear unchanged since September 2016. Dictated by... Supa Valenzuela M.D. THIS IS AN ELECTRONICALLY VERIFIED REPORT Supa Valenzuela M.D. at 11/26/2016 4:26 PM TEV/pc TD: 11/26/2016 11:40 JOB #: [id number] MEDICAL IMAGING REPORT Page 1 of 1 COPY
--- NOTE | ~2016-11-26 | CT16 ---
[facility] A Service of [facility] RADIOLOGY TEXT RESULTS PATIENT: SHABNAM MCCARTY LOCATION: [facility] : 51 UNIT #: [id number] AGE: [address]: Maldonado Chance MD SEX: F ORDER DR: [id number] [facility] [address] [place], [place] [address] [id number] E MR#: [id number] #: [id number] NAME: SHABNAM MCCARTY : 1955 SEX: F STUDY DATE/TIME: 11/26/2016 10:44 UNIT: [facility] ROOM: STUDY DESCRIPTION: CT Angio Chest for PE Attending Physician: Maldonado Chance M.D. Ordering Physician: Maldonado Chance M.D. Primary Care Physician: Karolina Ramesh A.P.R.N. MEDICAL IMAGING REPORT This report is preliminary unless electronic signature is present EXAM Chest CT angiogram with contrast, 11/26/16. PROCEDURE Axial contrast-enhanced chest CT angiogram with three-dimensional reformats. This CT exam was performed with one or more of the following radiation dose reduction techniques: automatic exposure control, adjustment of mA and/or kV according to patient size, and iterative reconstruction. COMPARISON Prior chest CT angiogram 08/19/2011. CLINICAL HISTORY One week history of shortness of air and tachycardia. FINDINGS There is chronic elevation of the left hemidiaphragm. There is atelectasis or infiltrate posteromedially in the right lower lobe, and there is some chronic atelectasis or scarring along the elevated left hemidiaphragm. No other pulmonary infiltrate is seen. There is no pneumothorax or effusion. Bolus timing is good and there is no evidence of pulmonary embolism and the thoracic aorta is normal. New since the prior study is a T12 compression fracture with about 10 to 20% height loss, and the appearance on CT suggest it is probably acute to subacute. No other recent appearing fracture is seen. Images of the upper abdomen show no acute abnormality. There is fatty infiltration of the liver. IMPRESSION [facility] A Service of [facility] RADIOLOGY TEXT RESULTS PATIENT: SHABNAM MCCARTY [id number] 51 UNIT #: [id number] AGE: [address]: Maldonado Chance MD SEX: F ORDER DR: 1. Good bolus timing and no evidence of pulmonary embolism, normal thoracic aorta. 2. There is a T12 compression fracture which appears acute to subacute with only 10 to 20% height loss. 3. There is right lower lobe posteromedial atelectasis or infiltrate and there is some chronic atelectasis or scarring along the left lung base, along the upper margin of the elevated left hemidiaphragm. Dictated by... Supa Valenzuela M.D. THIS IS AN ELECTRONICALLY VERIFIED REPORT Supa Valenzuela M.D. at 11/26/2016 4:25 PM EDUARDO/jdaniel TD: 11/26/2016 16:00 JOB #: [id number] MEDICAL IMAGING REPORT Page 1 of 1 COPY
--- NOTE | ~2016-11-26 | EKG ---
PATIENT: SHABNAM MCCARTY UNIT #: [id number] Ventricular Rate: 106 BPM Atrial Rate: 106 BPM P-R Interval: 130 ms QRS Duration: 68 ms Q-T Interval: 360 ms QTC Calculation(Bezet): 478 ms P Monte[place]: 53 degrees Calculated R [place]: 57 degrees Calculated T [place]: 64 degrees Diagnosis Line: Sinus tachycardia Diagnosis Line: Voltage criteria for left ventricular hypertrophy Diagnosis Line: Abnormal ECG Diagnosis Line: When compared with ECG of 27-SEP-2016 18:25, Diagnosis Line: ST no longer depressed in Lateral leads Diagnosis Line: Confirmed by MONICA MCADAMS MD ([id number]) on Diagnosis Line: 11/27/2016 6:53:39 AM INTERPRETING SHARMAINE MITCHELL
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
--- NOTE | ~2016-11-26 | XA149 ---
[facility] A Service of [facility] RADIOLOGY TEXT RESULTS PATIENT: SHABNAM MCCARTY LOCATION: [facility] 57-01 : 51 UNIT #: [id number] AGE: [address]: Jorje Winston MD SEX: F ORDER DR: [id number] [place] [address] [facility]. [place], [place] [address] [id number] I MR#: [id number] #: [id number] NAME: SHABNAM MCCARTY : 1955 SEX: F STUDY DATE/TIME: 12/01/2016 10:50 UNIT: [facility] ROOM: [facility] STUDY DESCRIPTION: XA Kyphoplasty Thoracic Attending Physician: Jorje Winston M.D. Ordering Physician: Jorje Winston M.D. Primary Care Physician: Karolina Ramesh A.P.R.N. MEDICAL IMAGING REPORT This report is preliminary unless electronic signature is present EXAM Kyphoplasty of T12 under fluoroscopy, dated 12/01/2016. HISTORY Acute compression fracture T12. Ms. Mccarty is a 61-year-old female who was playing with her grandson, fell, and had an acute onset of back pain. She has additional factors of COPD, hypertension and previous multiple fractures. She is currently on Dilaudid for pain and this is not managing her pain. PROCEDURE The patient's informed written consent was obtained. The patient was placed in the angio-suite on her stomach and conscious sedation was administered consisting of IV Versed and fentanyl. The patient was monitored by the IR nurse. Under fluoroscopic control, utilizing maximal sterile barrier technique and under local anesthesia trocars were placed through the pedicles at T12 and the vertebral body. Vertebroplasty was performed followed by injection of Kyphon cement. Imaging was obtained showing excellent filling of the vertebral body across the level of the fracture stabilizing the fracture. The catheter was removed, hemostasis achieved and the patient was returned to the floor in stable condition. A total of 7 spot radiographs were obtained. Total fluoroscopy time 7.3 minutes. Estimated exposure 482 mGy air kerma. CONCLUSION Successful kyphoplasty at the T12 level under fluoroscopy. Dictated by... Nader Scott M.D. THIS IS AN ELECTRONICALLY VERIFIED REPORT [facility] A Service of [facility] RADIOLOGY TEXT RESULTS PATIENT: SHABNAM MCCARTY LOCATION: [facility] : [birth year] UNIT #: [id number] AGE: [address]: Jorje Winston MD SEX: F ORDER DR: Nader Scott M.D. at 12/03/2016 7:24 AM WALKER/chris TD: 12/01/2016 19:45 JOB #: [id number] MEDICAL IMAGING REPORT Page 1 of 1 COPY
--- NOTE | ~2016-11-26 | DS ---
Unit #: [id number] #: [id number] Patient: SHABNAM MCCARTY [id number] [address] [place], [place] [address] [id number] I MR#: [id number] NAME: SHABNAM MCCARTY. ROOM: 576 Age: 61 Sex: F Admission Date: 11/26/2016 : 1955 Discharge Date: 12/07/2016 Attending Physician: Jorje Winston M.D. Primary Care Physician: Venita HardingPChristinaRKaleigh. DISCHARGE SUMMARY CONSULTATIONS 1. Dr. Arun Saez and Dr. Whitley from pulmonary services. 2. Dr. Boyle from cardiology services. 3. Dr. Turner from hematology services. 4. Interventional Radiology consult for kyphoplasty. PROCEDURE PERFORMED Kyphoplasty of T12 under fluoroscopy done on December 01, 2016, for acute compression fracture of T12. DIAGNOSTIC STUDIES LABORATORY: Potassium is 3.8, magnesium 2, sodium 139, chloride 106, BUN 20, creatinine 0.7, and calcium 9.4. WBC 8.7, hemoglobin 10.8, hematocrit 33.8, and platelet count of 373,000. IMAGING: MRI of the thoracic spine showed acute compression fracture of T12 resulting in approximately 15-20% vertebral body height loss. CT of the chest was done which showed no evidence of pulmonary embolism and normal thoracic aorta. Right lower lobe posteromedial atelectasis or infiltrate was seen. DISCHARGE DIAGNOSES 1. Acute compression fracture of T12, status post kyphoplasty. 2. Hypokalemia which is resolved. 3. Pneumonia. Patient has completed antibiotic. 4. Hypertension, uncontrolled, which is improved. 5. Chronic thrombocytopenia. 6. Sinus tachycardia which is improved. 7. Acute gouty attack of the left hand which is stable. 8. History of depression and anxiety. 9. History of alcohol abuse. 10. History of perforated colon, status post colectomy. DISCHARGE MEDICATIONS 1. Lortab 10/325 at 1 tablet q.8 p.r.n. for severe pain. 2. Coreg 12.5 mg twice daily. 3. Desyrel 150 mg daily. 4. Celexa 20 mg daily. 5. Neurontin 300 mg daily. 6. Prednisone 40 mg daily for 2 days and decrease 10 mg every 3 days until off. 7. Protonix 40 mg daily. 8. Zyloprim 100 mg daily. 9. Patient has completed a course of Omnicef and that needs to be Unit #: [id number] #: [id number] Patient: SHABNAM MCCARTY discontinued. 10. Thiamine 100 mg daily. 11. Folic acid 1 mg daily. HOSPITAL COURSE Ms. Shabnam Mccarty is a 61-year-old female who was admitted by my colleague, Dr. Winston, with history of fall and severe pain. The patient was admitted to telemetry unit and was found to have a T12 compression fracture. Interventional Radiology was consulted after confirming fracture with MRI. Patient had kyphoplasty done, and her pain has much, much improved, although she still gets pain off and on. Patient was also diagnosed with pneumonia. She has completed a course of antibiotics. She was on Rocephin and later on Omnicef, and she has completed the course of antibiotics. A tapering dose of steroids has been given. Patient does have a history of underlying COPD. Patient had tachycardia during hospitalization. An echocardiogram was done which showed left ventricular systolic function is normal 50% to 55%, no evidence of any pericardial effusion, mild concentric left ventricular hypertrophy, and mildly dilated left atrium. Patient's clonidine was discontinued, and beta alena was started and continued. She is doing much better, and her tachycardia has improved. Patient was also seen by Dr. Turner for thrombocytopenia. Patient was not symptomatic and had no evidence of bleeding. Close observation was done. Patient seems to be stable. Patient may need to follow with Dr. Turner as an outpatient if thrombocytopenia returns. PHYSICAL EXAMINATION ON DISCHARGE VITAL SIGNS: Blood pressure 154/99, respiratory rate 18, pulse 80, temperature 98.4, and oxygen saturation is 94%. HEENT: Head is normocephalic. CHEST: Fair air entry. CARDIOVASCULAR: S1 and S2 positive. Regular rhythm. ABDOMEN: Soft. EXTREMITIES: Negative edema. DISCHARGE INSTRUCTIONS 1. Patient is being discharged to [facility] in stable condition. 2. Medications as per medication reconciliation. 3. Dr. Mccoy to follow the patient at the long term. 4. PT/OT at rehab. 5. CBC and BMP to be done in one week. 1. Dictated by... Maritza Kang TD: 12/07/2016 15:26 JOB #: [id number] Unit #: [id number] #: [id number] Patient: BIBIANASHABNAM B DISCHARGE SUMMARY Page 1 of 1 X Ling Mendez MD X DISCHARGE SUMMARY
--- NOTE | ~2016-11-26 | CR181 ---
[facility] A Service of [facility] & [facility] RADIOLOGY TEXT RESULTS PATIENT: SHABNAM MCCARTY LOCATION: [place] [address] : 53 UNIT #: [id number] AGE: [address]: Jorje Winston MD SEX: F ORDER DR: [id number] [facility] [address] [place], [place] [address] [id number] E MR#: [id number] Acc #: [id number] NAME: SHABNAM MCCARTY. : 1955 SEX: F STUDY DATE/TIME: 11/26/2016 6:16 UNIT: [facility] ROOM: STUDY DESCRIPTION: CR Lumbar Spine 2 or 3 Views Attending Physician: Maldonado Chance M.D. Ordering Physician: Maldonado Chance M.D. Primary Care Physician: Karolina Ramesh A.P.R.N. MEDICAL IMAGING REPORT This report is preliminary unless electronic signature is present EXAM Lumbar spine, 4 views, 11/26/2016. HISTORY Low back pain and right hip pain status post fall today. FINDINGS Four views of the lumbar spine demonstrate chronic compression deformity involving the L3 vertebral body. There is a stable presumed subacute fracture involving the 12th thoracic vertebral body compared with CT scan of the lumbar spine dated 11/25/2016. Clinical correlation is recommended. The posterior vertebral body line is intact and there is no anterolisthesis or retrolisthesis. Marginal osteophytes are seen throughout the lumbar spine and there is degenerative change involving articular facets. IMPRESSION 1. Stable presumed subacute fracture involving the superior endplate of the 12th thoracic vertebral body compared with 11/25/2016 CT scan. Clinical correlation is recommended. 2. Stable chronic compression deformity involving the L3 vertebral body. No acute fracture is seen. 3. Degenerative change in the lumbar spine as detailed above. Dictated by... Darren Cowart M.D. THIS IS AN ELECTRONICALLY VERIFIED REPORT Darren Cowart M.D. at 11/27/2016 8:26 AM GRACE/gerald TD: 11/26/2016 08:32 JOB #: [id number] [facility] A Service of [facility] & [facility] RADIOLOGY TEXT RESULTS PATIENT: SHABNAM MCCARTY LOCATION: [facility] 576-01 : 53 UNIT #: [id number] AGE: [address]: Jorje Winston MD SEX: F ORDER DR: MEDICAL IMAGING REPORT Page 1 of 1 COPY
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
--- NOTE | ~2016-11-26 | CR151 ---
[facility] A Service of [facility] & [facility] RADIOLOGY TEXT RESULTS PATIENT: SHABNAM MCCARTY LOCATION: [place] [address] : 53 UNIT #: [id number] AGE: [address]: Jorje Winston MD SEX: F ORDER DR: [id number] [facility] [address] [place], [place] [address] [id number] E MR#: [id number] Acc #: [id number] NAME: SHABNAM MCCARTY. : 1955 SEX: F STUDY DATE/TIME: 11/26/2016 6:13 UNIT: [facility] ROOM: STUDY DESCRIPTION: CR Hip Min 2 Views Rt Attending Physician: Maldonado Chance M.D. Ordering Physician: Maldonado Chance M.D. Primary Care Physician: Karolina Ramesh A.P.R.N. MEDICAL IMAGING REPORT This report is preliminary unless electronic signature is present EXAM Right hip, 3 views, 11/26/2016. HISTORY Right hip pain and low back pain status post fall today. FINDINGS Three views of the right hip demonstrate no acute fracture or dislocation. Intramedullary mansi and compression screws traverse old healed right hip fracture. Bipolar left hip prosthesis is well-seated. Surgical plate and screws traverse the left acetabulum. Heterotopic ossification overlies the right greater trochanter. There is no soft tissue abnormality. IMPRESSION Old post traumatic and postsurgical changes involving the right hip. No acute abnormality. Dictated by... Darren Cowart M.D. THIS IS AN ELECTRONICALLY VERIFIED REPORT Darren Cowart M.D. at 11/27/2016 8:26 AM GRACE/gerald TD: 11/26/2016 08:11 JOB #: [id number] MEDICAL IMAGING REPORT Page 1 of 1 COPY
--- NOTE | ~2016-11-26 | MR176 ---
[facility] A Service of [facility] & [facility] RADIOLOGY TEXT RESULTS PATIENT: SHABNAM MCCARTY LOCATION: [facility] 576-01 : 53 UNIT #: [id number] AGE: [address]: Jorje Winston MD SEX: F ORDER DR: [id number] [facility] [address] [place], [place] [address] [id number] I MR#: [id number] Acc #: [id number] NAME: SHABNAM MCCARTY. : 1955 SEX: F STUDY DATE/TIME: 11/30/2016 17:22 UNIT: [facility] ROOM: [facility] STUDY DESCRIPTION: MR Thoracic Wo Contrast Attending Physician: Jorje Winston M.D. Ordering Physician: Jose Rafael Soto M.D. Primary Care Physician: Karolina Ramesh A.P.R.N. MRI CENTER REPORT This report is preliminary unless electronic signature is present. EXAM MR lumbar spine INDICATION T12 compression fracture. Initial MR staging. FINDINGS There is an acute T12 compression fracture. This results in approximately 15% to 20% height loss of the anterior and posterior vertebral body. There is 4 mm of retropulsion of the superior endplate of T12. This results in a mild central canal stenosis. No significant paraspinous fluid collection or hematoma. There is a trace left pleural effusion. There is some endplate regularity associated with the superior endplate of T10. This is most consistent with Schmorl's node formation. No abnormal signal characteristics of the thoracic spinal cord. IMPRESSION Acute compression fracture of T12 resulting in approximately 15% to 20% vertebral body height loss. There is 4 mm of retropulsion causing a mild central canal stenosis. Dictated by... Placido Chambers M.D. THIS IS AN ELECTRONICALLY VERIFIED REPORT Placido Chambers M.D. at 12/01/2016 10:50 AM RAMA/ulises TD: 12/01/2016 09:06 JOB #: [id number] [facility] A Service of [facility] & [facility] RADIOLOGY TEXT RESULTS PATIENT: SHABNAM MCCARTY LOCATION: [place] [address] : 53 UNIT #: [id number] AGE: [address]: Jorje Winston MD SEX: F ORDER DR: MRI CENTER REPORT Page 1 of 1 COPY
[2016-11-26 06:52] LABS: BASOPHIL# 0.1 X10e3 (0-0.3); BASOPHIL% 0.6 % (0-2.5); EOSINOPHIL% 0.1 % (0.0-7.0); HEMATOCRIT 46.4 % (35.0-45.0); HEMOGLOBIN 14.7 gm/dL (12.0-16.0); LYMPHOCYTE# 1.6 X10e3 (1.0-3.5); LYMPHOCYTE% 15.3 % (17.0-45.0); MEAN CELL VOLUME 95.4 FL (83-96); MEAN CORPUSCULAR HEMOGLOBIN 30.2 PG (28-34); MEAN CORPUSCULAR HGB CONC 31.7 g/dL (30-36); MEAN PLATELET VOLUME 8.5 FL (6.5-11.5); MONOCYTE# 0.7 X10e3 (0-1.0); MONOCYTE% 6.9 % (3.0-12.0); NEUTROPHIL# 8.2 X10e3 (1.5-7.1); NEUTROPHIL% 77.1 % (40-75); RED BLOOD COUNT 4.87 X10e (3.90-5.30); RED CELL DISTRIBUTION WIDTH 16.4 % (11.0-15.5); WHITE BLOOD COUNT 10.6 X10e3 (4.0-10.5)
[2016-11-26 07:11] LABS: DIFF IND YES
[2016-11-26 07:13] LABS: ANISOCYTOSIS SL; PLATELET ESTIMATE DECREASED (NORMAL)
[2016-11-26 07:25] LABS: ALBUMIN SERUM 5.2 g/dL (3.5-5.0); BILIRUBIN, DIRECT 0.4 mg/dL (0.0-0.2); BILIRUBIN,INDIRECT 1.3 mg/dL (0.0-0.9); BILIRUBIN,TOTAL 1.7 mg/dL (0.2-2.0); BUN/CREATININE RATIO 13.33; CALCIUM SERUM 9.5 mg/dL (8.4-10.2); CREATININE SERUM 0.6 mg/dL (0.6-1.4); GLOM FILT RATE Estimated 112.4 mL/min (>60); POTASSIUM 3.8 mmol/L (3.5-5.1); PROTEIN TOTAL SERUM 9.6 g/dL (6.0-8.3)
[2016-11-26 08:18] LABS: URINE SOURCE CLEAN CATCH
[2016-11-26 08:31] LABS: URBCS1 AUWI 0-2 /[HPF] (0-2); URINE APPEARANCE CLEAR; URINE BACTERIA AUWI NEG (NEGATIVE); URINE BILIRUBIN NEG (NEG); URINE BLOOD 1+ (NEG); URINE COLOR YELLOW; URINE GLUCOSE NEG (NEG); URINE KETONE 1+ (NEG); URINE LEUKOCYTE ESTERASE NEG (NEG); URINE NITRATE NEG (NEG); URINE PROTEIN 1+ (NEG); URINE SPECIFIC GRAVITY 1.008 (1.003-1.035); URINE SQUAMOUS EPITHELIAL CELL NONE SEEN /[HPF]; URINE UROBILINOGEN 0.2 MG/DL (NEG); UWBCS1 AUWI 0-2 (0-5)
[2016-11-26 08:35] LABS: CULTURE INDICATED? NO
[2016-11-26] MEDS ORDERED: CELEXA20 MG PO (12:06)
[2016-11-26] MEDS ORDERED: PATIENT'S PHARMACY (12:06)
[2016-11-26] MEDS ORDERED: ZYLOPRIM100 MG PO (12:06)
[2016-11-26] MEDS ORDERED: BYSTOLIC10 MG PO (12:06)
[2016-11-26] MEDS ORDERED: DESYREL150 M1 PO (12:06)
[2016-11-26] MEDS ORDERED: PANTOPRAZOLE SO40 MG PO (12:07)
[2016-11-26] MEDS ORDERED: GABAPENTIN300 M2 PO (12:07)
[2016-11-26 19:15] LABS: %MB 3.1 % (0.0-4.0); MB 4.3 ng/ml
[2016-11-27 06:24] LABS: CALCIUM SERUM 9.1 mg/dL (8.4-10.2); GLOM FILT RATE Estimated 69.5 mL/min (>60); POTASSIUM 4.2 mmol/L (3.5-5.1)
[2016-11-27 07:19] LABS: %MB 3.3 % (0.0-4.0); MB 3.1 ng/ml
[2016-11-27 08:48] LABS: BASOPHIL% 0.1 % (0-2.5); EOSINOPHIL% 0.2 % (0.0-7.0); HEMATOCRIT 41.7 % (35.0-45.0); HEMOGLOBIN 13.2 gm/dL (12.0-16.0); LYMPHOCYTE% 11.6 % (17.0-45.0); MEAN CELL VOLUME 94.8 FL (83-96); MEAN CORPUSCULAR HEMOGLOBIN 30.1 PG (28-34); MEAN CORPUSCULAR HGB CONC 31.8 g/dL (30-36); MEAN PLATELET VOLUME 8.8 FL (6.5-11.5); MONOCYTE# 0.4 X10e3 (0-1.0); MONOCYTE% 4.6 % (3.0-12.0); NEUTROPHIL# 7.3 X10e3 (1.5-7.1); NEUTROPHIL% 83.5 % (40-75); RED BLOOD COUNT 4.39 X10e (3.90-5.30); WHITE BLOOD COUNT 8.8 X10e3 (4.0-10.5)
[2016-11-27 09:13] LABS: THYROID STIMULATING HORMONE 5.19 uIU/ml (0.34-5.60)
[2016-11-27 09:18] LABS: FREE T3 2.9 pg/mL (2.5-3.9)
[2016-11-27 09:19] LABS: FREE THYROXIN (T4) 0.57 ng/dL (0.58-1.64)
[2016-11-27 09:50] LABS: DIFF IND YES; PLATELET COUNT 67 X10e3 (140-420)
[2016-11-27 12:08] LABS: PLATELET ESTIMATE DECREASED (NORMAL); RBC NORMAL YES
[2016-11-27 12:09] LABS: ANISOCYTOSIS SL
[2016-11-28 07:05] LABS: BUN/CREATININE RATIO 22.22; CALCIUM SERUM 8.9 mg/dL (8.4-10.2); CREATININE SERUM 0.9 mg/dL (0.6-1.4); GLOM FILT RATE Estimated 78.9 mL/min (>60); POTASSIUM 3.6 mmol/L (3.5-5.1)
[2016-11-29 08:29] LABS: BASOPHIL% 0.3 % (0-2.5); EOSINOPHIL# 0.1 X10e3 (0-0.7); EOSINOPHIL% 0.9 % (0.0-7.0); HEMATOCRIT 38.6 % (35.0-45.0); HEMOGLOBIN 12.2 gm/dL (12.0-16.0); LYMPHOCYTE# 1.6 X10e3 (1.0-3.5); LYMPHOCYTE% 24.3 % (17.0-45.0); MEAN CELL VOLUME 95.2 FL (83-96); MEAN CORPUSCULAR HEMOGLOBIN 30.1 PG (28-34); MEAN CORPUSCULAR HGB CONC 31.6 g/dL (30-36); MEAN PLATELET VOLUME 9.1 FL (6.5-11.5); MONOCYTE# 0.7 X10e3 (0-1.0); MONOCYTE% 11.1 % (3.0-12.0); NEUTROPHIL# 4.1 X10e3 (1.5-7.1); NEUTROPHIL% 63.4 % (40-75); PLATELET COUNT 69 X10e3 (140-420); RED BLOOD COUNT 4.06 X10e (3.90-5.30); RED CELL DISTRIBUTION WIDTH 15.8 % (11.0-15.5); WHITE BLOOD COUNT 6.4 X10e3 (4.0-10.5)
[2016-11-29 08:31] LABS: DIFF IND NO
[2016-11-30 06:54] LABS: CALCIUM SERUM 9.2 mg/dL (8.4-10.2); CREATININE SERUM 0.5 mg/dL (0.6-1.4); GLOM FILT RATE Estimated 119.4 mL/min (>60); POTASSIUM 3.2 mmol/L (3.5-5.1)
[2016-11-30 08:39] LABS: HEMATOCRIT 39.8 % (35.0-45.0); HEMOGLOBIN 12.8 gm/dL (12.0-16.0); MEAN CORPUSCULAR HEMOGLOBIN 30.2 PG (28-34); MEAN CORPUSCULAR HGB CONC 32.1 g/dL (30-36); MEAN PLATELET VOLUME 8.6 FL (6.5-11.5); RED BLOOD COUNT 4.23 X10e (3.90-5.30); WHITE BLOOD COUNT 6.4 X10e3 (4.0-10.5)
[2016-11-30 16:19] LABS: INR 0.9; PARTIAL THROMBOPLASTIN TIME 29.3 SECONDS (23.5-31.3); PROTHROMBIN TIME (PATIENT) 10.1 SECONDS (10.0-11.7)
[2016-12-01 06:11] LABS: BUN/CREATININE RATIO 17.5; CREATININE SERUM 0.4 mg/dL (0.6-1.4); GLOM FILT RATE Estimated 128.5 mL/min (>60)
[2016-12-01 07:51] LABS: BASOPHIL% 0.3 % (0-2.5); EOSINOPHIL% 0.6 % (0.0-7.0); HEMATOCRIT 36.7 % (35.0-45.0); HEMOGLOBIN 11.5 gm/dL (12.0-16.0); LYMPHOCYTE# 1.8 X10e3 (1.0-3.5); LYMPHOCYTE% 33.9 % (17.0-45.0); MEAN CELL VOLUME 96.2 FL (83-96); MEAN CORPUSCULAR HEMOGLOBIN 30.1 PG (28-34); MEAN CORPUSCULAR HGB CONC 31.3 g/dL (30-36); MEAN PLATELET VOLUME 7.8 FL (6.5-11.5); MONOCYTE# 1.2 X10e3 (0-1.0); MONOCYTE% 22.7 % (3.0-12.0); NEUTROPHIL# 2.2 X10e3 (1.5-7.1); NEUTROPHIL% 42.5 % (40-75); RED BLOOD COUNT 3.81 X10e (3.90-5.30); RED CELL DISTRIBUTION WIDTH 15.8 % (11.0-15.5); WHITE BLOOD COUNT 5.3 X10e3 (4.0-10.5)
[2016-12-01 07:53] LABS: DIFF IND YES
[2016-12-01 08:48] LABS: ANISOCYTOSIS SL; PLATELET ESTIMATE DECREASED (NORMAL); ROULEAUX SLIGHT; TEAR DROP CELLS PRESENT
[2016-12-01 08:52] LABS: PLATELET COUNT 121 X10e3 (140-420); REACTIVE LYMPHS PRESENT
[2016-12-01 20:01] LABS: BUN/CREATININE RATIO 17.5; CALCIUM SERUM 9.4 mg/dL (8.4-10.2); CREATININE SERUM 0.4 mg/dL (0.6-1.4); GLOM FILT RATE Estimated 128.5 mL/min (>60); POTASSIUM 3.5 mmol/L (3.5-5.1)
[2016-12-03 05:58] LABS: HEMOGLOBIN 11.2 gm/dL (12.0-16.0); MEAN CELL VOLUME 93.8 FL (83-96); MEAN CORPUSCULAR HEMOGLOBIN 30.1 PG (28-34); MEAN CORPUSCULAR HGB CONC 32.1 g/dL (30-36); MEAN PLATELET VOLUME 8.5 FL (6.5-11.5); RED BLOOD COUNT 3.73 X10e (3.90-5.30); RED CELL DISTRIBUTION WIDTH 16.1 % (11.0-15.5); WHITE BLOOD COUNT 7.8 X10e3 (4.0-10.5)
[2016-12-03 06:36] LABS: BUN/CREATININE RATIO 21.11; CALCIUM SERUM 8.8 mg/dL (8.4-10.2); CREATININE SERUM 0.9 mg/dL (0.6-1.4); GLOM FILT RATE Estimated 78.9 mL/min (>60); POTASSIUM 3.5 mmol/L (3.5-5.1)
[2016-12-04 05:56] LABS: CALCIUM SERUM 9.2 mg/dL (8.4-10.2); CREATININE SERUM 0.6 mg/dL (0.6-1.4); GLOM FILT RATE Estimated 112.4 mL/min (>60); POTASSIUM 3.7 mmol/L (3.5-5.1)
[2016-12-05 06:30] LABS: HEMATOCRIT 33.8 % (35.0-45.0); HEMOGLOBIN 10.8 gm/dL (12.0-16.0); MEAN CELL VOLUME 93.8 FL (83-96); MEAN CORPUSCULAR HEMOGLOBIN 30.1 PG (28-34); MEAN CORPUSCULAR HGB CONC 32.1 g/dL (30-36); RED BLOOD COUNT 3.61 X10e (3.90-5.30); RED CELL DISTRIBUTION WIDTH 15.9 % (11.0-15.5); WHITE BLOOD COUNT 8.7 X10e3 (4.0-10.5)
[2016-12-05 06:52] LABS: BUN/CREATININE RATIO 28.57; CALCIUM SERUM 9.4 mg/dL (8.4-10.2); CREATININE SERUM 0.7 mg/dL (0.6-1.4); GLOM FILT RATE Estimated 106.9 mL/min (>60); MAGNESIUM 1.8 mg/dL (1.6-3.0); POTASSIUM 3.9 mmol/L (3.5-5.1)
[2016-12-06 06:07] LABS: POTASSIUM 4.2 mmol/L (3.5-5.1)
[2016-12-07 06:06] LABS: POTASSIUM 3.8 mmol/L (3.5-5.1)
[2016-12-08 08:25] LABS: MAGNESIUM 1.9 mg/dL (1.6-3.0); POTASSIUM 3.7 mmol/L (3.5-5.1)
[2016-12-09 07:08] LABS: MAGNESIUM 2.1 mg/dL (1.6-3.0); POTASSIUM 4.3 mmol/L (3.5-5.1)
[2016-12-09] MEDS ORDERED: AMLODIPINE BESY10 MG PO (20:10)
[2016-12-09] MEDS ORDERED: FOLIC ACID1 MG PO (20:10)
[2016-12-09] MEDS ORDERED: LORTAB 10-3251 EACH PO (20:10)
[2016-12-09] MEDS ORDERED: THIAMINE HCL100 M1 PO (20:11)
[2016-12-09] MEDS ORDERED: COREG12.5 MG PO (20:11)
[2016-12-09] MEDS ORDERED: ROBITUSSIN A-C S5 ML PO (20:12)
[2016-12-09] MEDS ORDERED: PREDNISONE PO (20:13)
== END 2016-12-09 21:00 | disposition home health service (06) | DRG 515 ==
LOC: CED 03:45 → CEDOF 12:26 → C5C 12:26 → CED 18:41 → CEDOF 18:41 → C5C 23:15 → CEDOF 23:15 → C5C 12-09 21:00
PROVIDERS: Emergency Medicine; Hospitalist; Internal Medicine Cardiovascular Disease; Physician Assistant Medical; Surgery
PROC: B32TYZZ Computerized Tomography (CT Scan) of Left Pulmonary Artery using Other Contrast (ICD-10-PCS; 2016-11-26)
PROC: B32SYZZ Computerized Tomography (CT Scan) of Right Pulmonary Artery using Other Contrast (ICD-10-PCS; 2016-11-26)
PROC: B24BZZZ Ultrasonography of Heart with Aorta (ICD-10-PCS; 2016-11-27)
PROC: 0PS43ZZ Reposition Thoracic Vertebra, Percutaneous Approach (ICD-10-PCS; principal; 2016-12-01)
PROC: 0PU43JZ Supplement Thoracic Vertebra with Synthetic Substitute, Percutaneous Approach (ICD-10-PCS; 2016-12-01)
DX: S22.089A Unspecified fracture of T11-T12 vertebra, initial encounter for closed fracture (principal); J18.9 Pneumonia, unspecified organism; D69.6 Thrombocytopenia, unspecified; J44.0 Chronic obstructive pulmonary disease with (acute) lower respiratory infection; W19.XXXA Unspecified fall, initial encounter; Y93.89 Activity, other specified; Y92.009 Unspecified place in unspecified non-institutional (private) residence as the place of occurrence of the external cause; E87.6 Hypokalemia; I10 Essential (primary) hypertension; R00.0 Tachycardia, unspecified; M10.042 Idiopathic gout, left hand; F32.9 Major depressive disorder, single episode, unspecified; F41.9 Anxiety disorder, unspecified; F17.210 Nicotine dependence, cigarettes, uncomplicated; E78.5 Hyperlipidemia, unspecified; F10.10 Alcohol abuse, uncomplicated; I95.2 Hypotension due to drugs; T50.995A Adverse effect of other drugs, medicaments and biological substances, initial encounter; Y92.9 Unspecified place or not applicable; Z90.49 Acquired absence of other specified parts of digestive tract
CPT/HCPCS: 36415; 71010; 71275; 72100; 72146; 73502; 76140; 80048; 80076; 81003; 82308; 82550; 82553; 82607; 83605; 83735; 84132; 84155; 84439; 84443; 84481; 84484; 85025; 85027; 85049; 85610; 85730; 86334; 93005; 93306; 94640; 94760; 96361; 96374; 96376; 97110; 97116; 97163; 97530; 97535; 99285; C1713; G8978-GP; G8979-GP; J0360; J0456; J0696; J1170; J1650; J1885; J1956; J2250; J2270; J2920; J3010; J3475; J3490; Q9967

== ENCOUNTER 2016-12-31 12:04 | Inpatient (IN) | payer MEDICARE, OTHER ==
[~2016-12-31] VITALS: Ht 164.1 cm; Wt 55.1 kg
--- NOTE | ~2016-12-31 | CR173 ---
[facility] A Service of [facility] & [facility] RADIOLOGY TEXT RESULTS PATIENT: SHABNAM MCCARTY LOCATION: [facility] : 53 UNIT #: [id number] AGE: [address]: Maldonado Chance MD SEX: F ORDER DR: [id number] [facility] [address] [place], [place] [address] [id number] E MR#: [id number] Acc #: [id number] NAME: SHABNAM MCCARTY. : 1955 SEX: F STUDY DATE/TIME: 12/31/2016 1359 UNIT: [facility] ROOM: STUDY DESCRIPTION: CR Knee 3 Views Rt Attending Physician: Maldonado Chance M.D. Ordering Physician: Maldonado Chance M.D. Primary Care Physician: Karolina Ramesh A.P.R.N. MEDICAL IMAGING REPORT This report is preliminary unless electronic signature is present EXAM Right knee 3 views 12/31/2016 1359 hours HISTORY Patient fell yesterday, knee pain. COMPARISON 03/01/2012 FINDINGS AP, lateral and sunrise views demonstrate the distal aspect of an intramedullary mansi in the femur with 2 transverse locking screws present. There is no knee joint effusion or knee fracture. IMPRESSION No knee joint effusion or fracture. No significant joint space loss. The distal aspect of an intramedullary mansi within the femur is included in the field of view. Dictated by... Unique Burch M.D. THIS IS AN ELECTRONICALLY VERIFIED REPORT Unique Burch M.D. at 12/31/2016 7:19 PM Boy TD: 12/31/2016 16:22 JOB #: [id number] MEDICAL IMAGING REPORT Page 1 of 1 COPY
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
--- NOTE | ~2016-12-31 | US85 ---
[facility] A Service [facility] RADIOLOGY TEXT RESULTS PATIENT: SHABNAM MCCARTY LOCATION: [facility] 5610-05 : 53 UNIT #: [id number] AGE: [address]: Jorje Winston MD SEX: F ORDER DR: [id number] [facility] [address] [place], [place] [address] [id number] I MR#: [id number] Acc #: [id number] NAME: SHABNAM MCCARTY. : 1955 SEX: F STUDY DATE/TIME: 01/06/2017 16:57 UNIT: [facility] ROOM: [facility] STUDY DESCRIPTION: US LE Veins Unilat or Ltd Stdy Attending Physician: Jorje Winston M.D. Ordering Physician: Jorje Winston M.D. Primary Care Physician: Karolina Ramesh A.P.R.N. MEDICAL IMAGING REPORT This report is preliminary unless electronic signature is present EXAM Right leg lower extremity venous Doppler 01/06/2017 HISTORY Right leg pain since with swelling. TECHNIQUE Venous ultrasound examination of the right lower extremity was performed using grayscale, spectral Doppler and color flow Doppler imaging. FINDINGS The examination is negative. There is no evidence of right lower extremity deep venous thrombus from the groin to the lower calf. Visualized greater saphenous vein is also patent. IMPRESSION Negative examination. No evidence of right lower extremity deep venous thrombosis. Dictated by... Supa Valenzuela M.D. THIS IS AN ELECTRONICALLY VERIFIED REPORT Supa Valenzuela M.D. at 01/07/2017 11:49 AM TEV/pcl TD: 01/06/2017 18:36 JOB #: [id number] [facility] A Service [facility] RADIOLOGY TEXT RESULTS PATIENT: SHABNAM MCCARTY LOCATION: [facility] : 53 UNIT #: [id number] AGE: [address]: Jorje Winston MD SEX: F ORDER DR: MEDICAL IMAGING REPORT Page 1 of 1 COPY
--- NOTE | ~2016-12-31 | CT98 ---
[facility] A Service of [facility] & [facility] RADIOLOGY TEXT RESULTS PATIENT: SHABNAM MCCARTY LOCATION: [facility] [id number] : 53 UNIT #: [id number] AGE: [address]: Jorje Winston MD SEX: F ORDER DR: [id number] [facility] [address] [place], [place] [address] [id number] I MR#: [id number] Acc #: [id number] NAME: SHABNAM MCCARTY. : 1955 SEX: F STUDY DATE/TIME: 01/01/2017 20:18 UNIT: [facility] ROOM: [facility] STUDY DESCRIPTION: CT Lumbar Spine Wo Cont Attending Physician: Jorje Winston M.D. Ordering Physician: Jorje Winston M.D. Primary Care Physician: Karolina Ramesh A.P.R.N. MEDICAL IMAGING REPORT This report is preliminary unless electronic signature is present EXAM CT scan of the lumbar spine, without contrast, 01/01/2017. HISTORY Fall at home 12/30/2016. Low back pain for 2 days. Sharp pain in lower mid back. Patient is unable to move. COMPARISON 11/25/2016 TECHNIQUE Axial 2-mm images were obtained through the lumbar spine and sagittal and coronal reconstructions were generated. This CT exam was performed with one or more of the following radiation dose reduction techniques: automatic exposure control, adjustment of mA and/or kV according to patient size, and iterative reconstruction. FINDINGS There is minimal right base atelectasis. The patient has undergone a vertebroplasty at T12, and there is compression of T12 with superior endplate deformity. The loss of height is at least 30%. This has progressed significantly since 11/25/16, when the loss of height was much less. There is minimal retropulsion of the superior margin of T12, causing mild spinal stenosis. This involves the central and left side of the anterior spinal canal. The T12-L1 disc space is normal. The L1 vertebral body and L1-L2 disc spaces are normal. The L2 vertebral body and L2-L3 disc space are normal. There is very minimal superior endplate deformity of L3, which is unchanged. The L3-L4 disc space is normal. The L4 vertebral body is normal, and the L4-L5 disc space is normal. L5-S1 appears normal. There are facet degenerative changes throughout the lumbar spine, particularly STS. [facility] A Service of [facility] & [facility] RADIOLOGY TEXT RESULTS PATIENT: SHABNAM MCCARTY LOCATION: [place] [address] : [birth year] UNIT #: [id number] AGE: [address]: Jorje Winston MD SEX: F ORDER DR: at L4-L5. There is no paraspinal fluid collection or mass visible. IMPRESSION 1. Stable minimal superior endplate depression of L3. 2. T12 appeared to have an acute compression fracture affecting the superior endplate back on 11/25/2016. At that time, the compression is only 10% or less. The patient has undergone vertebroplasty at that area, but there has been an increase in compression of the vertebral body that is compressed at least 30%, and the superior third of the posterior margin of the vertebral body is retropulsed slightly, causing mild spinal stenosis. This is most pronounced in the midline and on the left side. 3. The other vertebral bodies are normal. The disc spaces are normal. 4. There is no evidence of fluid collection around the spine. This unenhanced CT scan is not very sensitive for diskitis, but there are certainly no disc changes of diskitis on the CT images. The disc spaces are all normal in height. STAT * RESULT Dictated by... John Paul Patrick M.D. THIS IS AN ELECTRONICALLY VERIFIED REPORT John Paul Patrick M.D. at 01/02/2017 1:25 PM JOSE C/johnny TD: 01/02/2017 08:41 JOB #: [id number] MEDICAL IMAGING REPORT Page 1 of 1 COPY
--- NOTE | ~2016-12-31 | EKG ---
PATIENT: SHABNAM MCCARTY UNIT #: [id number] Ventricular Rate: 114 BPM Atrial Rate: 114 BPM P-R Interval: 140 ms QRS Duration: 90 ms Q-T Interval: 370 ms QTC Calculation(Bezet): 509 ms P [place]: 58 degrees Calculated R [place]: 52 degrees Calculated T [place]: 70 degrees Diagnosis Line: Sinus tachycardia Diagnosis Line: Moderate voltage criteria for LVH, may be normal Diagnosis Line: variant Diagnosis Line: Borderline ECG Diagnosis Line: When compared with ECG of 26-NOV-2016 19:57, Diagnosis Line: ST no longer elevated in Inferior leads Diagnosis Line: Confirmed by RIAZ CHI MD ([id number]) on 01/06/2017 Diagnosis Line: 7:32:28 AM INTERPRETING MD: ARTI HENSLEY
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
--- NOTE | ~2016-12-31 | CR181 ---
[facility] A Service of [facility] RADIOLOGY TEXT RESULTS PATIENT: SHABNAM MCCARTY LOCATION: [place] [address] : 53 UNIT #: [id number] AGE: [address]: Jorje Winston MD SEX: F ORDER DR: [id number] [place] [id number] [facility] [place], [place] [address] [id number] E MR#: [id number] Acc #: [id number] NAME: SHABNAM MCCARTY. : 1955 SEX: F STUDY DATE/TIME: 12/31/2016 14:00 UNIT: [facility] ROOM: STUDY DESCRIPTION: CR Lumbar Spine 2 or 3 Views Attending Physician: Maldonado Chance M.D. Ordering Physician: Maldonado Chance M.D. Primary Care Physician: Karolina Ramesh A.P.R.N. MEDICAL IMAGING REPORT This report is preliminary unless electronic signature is present EXAM Lumbar spine series HISTORY Patient fell yesterday with back pain since. TECHNIQUE Three views of the lumbar spine were obtained and compared with 11/26/2016 FINDINGS Post kyphoplasty changes are noted at T12. This is new since the previous examination. There is a slight deformity of the upper endplate of L3 but this was present before and has not changed. No definite acute fractures are noted. Degenerative changes are seen to a moderate degree at the mid lumbar discs as well as throughout the posterior facets of the mid to lower lumbar spine. This is stable. IMPRESSION No acute fractures are seen. There is an old healed L3 upper endplate fracture. Since the previous examination the patient has a hypoplastic at T12. No acute bony abnormalities are seen. Dictated by... Colin Ramesh M.D. THIS IS AN ELECTRONICALLY VERIFIED REPORT Colin Ramesh M.D. at 01/01/2017 12:47 PM Andrea TD: 12/31/2016 16:50 JOB #: [id number] MEDICAL IMAGING REPORT [facility] A Service of [facility] RADIOLOGY TEXT RESULTS PATIENT: SHABNAM MCCARTY LOCATION: [facility] [id number] : [birth year] UNIT #: [id number] AGE: [address]: Jorje Winston MD SEX: F ORDER DR: Page 1 of 1 COPY
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
--- NOTE | ~2016-12-31 | DS ---
Unit #: [id number] #: [id number] Patient: SHABNAM MCCARTY [id number] [address] [address] [id number] I MR#: [id number] NAME: SHABNAM MCCARTY. ROOM: [facility] Age: 61 Sex: F Admission Date: 12/31/2016 : 1955 Discharge Date: 01/08/2017 Attending Physician: Jorje Winston M.D. Primary Care Physician: Karolina Ramesh A.P.R.N. DISCHARGE SUMMARY FINAL DIAGNOSES 1. History of fall. 2. Compression fracture. 3. History of fall last month with status post kyphoplasty. 4. Urinary tract infection, status post completion of antibiotic therapy. 5. Sinus tachycardia. 6. History of chronic obstructive pulmonary disease. 7. Hypertension. 8. Hyperlipidemia. 9. Chronic thrombocytopenia. DISCHARGE MEDICATIONS 1. Desyrel 150 mg at bedtime. 2. Atorvastatin 80 mg at nighttime. 3. Coreg 6.25 mg b.i.d. 4. Bystolic 10 mg daily. 5. Zyloprim 100 mg b.i.d. 6. [place] 10/325 mg q.6 h. p.r.n. 7. Spironolactone 25 mg daily. HOSPITAL COURSE Ms. Mccarty is a 61-year-old female who was discharged from [facility] on 12/07/2016 to the rehab facility. She went home and she had another fall and came back, which showed worsening of her compression fracture. The patient was admitted to the hospital. Interventional radiology was consulted, but no further procedure could be performed. Physical therapy and occupational therapy were consulted. The patient is deconditioned and has had multiple falls. She will be transferred to rehab facility for ongoing physical therapy and occupational therapy. The patient verbalizes understanding. PHYSICAL EXAMINATION VITALS: Blood pressure 101/66, respiratory rate 18, pulse 92, temperature 98.3, oxygen saturation 97%. CHEST: Fair air entry. No additional sounds. HEART: Regular rhythm. ABDOMEN: Soft. EXTREMITIES: Negative edema. DISCHARGE INSTRUCTIONS 1. The patient is being discharged to the rehab facility in stable condition. 2. Medication as per medication reconciliation. Unit #: [id number] #: [id number] Patient: SHABNAM MCCARTY 3. Continue physical therapy and occupational therapy. 4. Prescription for hydrocodone is being written. Dictated by... Maritza Kang TD: 01/08/2017 13:53 JOB #: [id number] DISCHARGE SUMMARY Page 1 of 1 X Ling Mendez MD X DISCHARGE SUMMARY
--- NOTE | ~2016-12-31 | CR151 ---
[facility] A Service of [facility] & [facility] RADIOLOGY TEXT RESULTS PATIENT: SHABNAM MCCARTY LOCATION: [facility] : 53 UNIT #: [id number] AGE: [address]: Maldonado Chance MD SEX: F ORDER DR: [id number] [facility] [address] [place], [place] [address] [id number] E MR#: [id number] Acc #: [id number] NAME: SHABNAM MCCARTY. : 1955 SEX: F STUDY DATE/TIME: 12/31/2016 UNIT: [facility] ROOM: STUDY DESCRIPTION: CR Hip Min 2 Views Rt Attending Physician: Maldonado Chance M.D. Ordering Physician: Maldonado Chance M.D. Primary Care Physician: Venita HardingPLuz MEDICAL IMAGING REPORT This report is preliminary unless electronic signature is present EXAM Right hip 12/31/2016, 1359 hours HISTORY Patient fell yesterday with hip and leg pain. History of prior hip fractures and femur fracture. COMPARISON 11/26/2016. FINDINGS AP pelvis and frog lateral view right hip were performed. The bones are osteopenic. There are plate and screw fixators at the left acetabulum and a left total hip replacement. There is an intramedullary mansi in the right femur with 2 screws extending into the femoral head, unchanged from 11/26/2016. There is heterotopic bone near the lesser trochanter and greater trochanter, unchanged. The acetabulum and pubic rami are intact. IMPRESSION Osteopenia with prior hardware placement at both the left hip and right femur. There is heterotopic bone consistent with myositis ossificans medially near the lesser trochanter and proximally to the greater trochanter, unchanged from 11/26/2016. No acute fracture is seen. Dictated by... Unique Burch M.D. THIS IS AN ELECTRONICALLY VERIFIED REPORT Unique Burch M.D. at 12/31/2016 7:19 PM SALUD/loli TD: 12/31/2016 16:22 [facility]. [facility] A Service of [facility] & [facility] RADIOLOGY TEXT RESULTS PATIENT: SHABNAM MCCARTY LOCATION: [facility] #: [id number] : [birth year] UNIT #: [id number] AGE: [address]: Maldonado Chance MD SEX: F ORDER DR: JOB #: [id number] MEDICAL IMAGING REPORT Page 1 of 1 COPY
[~2016-12-31 12:04] MED LIST changes: +AMLODIPINE BESY10 MG PO; +COREG12.5 MG PO; +DESYREL150 M1 PO; +LORTAB 10-3251 EACH PO; +PANTOPRAZOLE SO40 MG PO; +PATIENT'S PHARMACY; +PREDNISONE PO; +ROBITUSSIN A-C S5 ML PO; +ZYLOPRIM100 MG PO
[2016-12-31 13:11] LABS: BASOPHIL% 0.4 % (0-2.5); EOSINOPHIL% 0.1 % (0.0-7.0); HEMATOCRIT 36.3 % (35.0-45.0); HEMOGLOBIN 11.8 gm/dL (12.0-16.0); LYMPHOCYTE% 13.1 % (17.0-45.0); MEAN CELL VOLUME 92.9 FL (83-96); MEAN CORPUSCULAR HEMOGLOBIN 30.2 PG (28-34); MEAN CORPUSCULAR HGB CONC 32.5 g/dL (30-36); MEAN PLATELET VOLUME 9.8 FL (6.5-11.5); MONOCYTE# 0.8 X10e3 (0-1.0); MONOCYTE% 10.9 % (3.0-12.0); NEUTROPHIL# 5.6 X10e3 (1.5-7.1); NEUTROPHIL% 75.5 % (40-75); RED BLOOD COUNT 3.91 X10e (3.90-5.30); RED CELL DISTRIBUTION WIDTH 17.3 % (11.0-15.5); WHITE BLOOD COUNT 7.4 X10e3 (4.0-10.5)
[2016-12-31 13:25] LABS: DIFF IND YES
[2016-12-31 13:26] LABS: ANISOCYTOSIS SL; PLATELET ESTIMATE NORMAL (NORMAL)
[2016-12-31 15:43] LABS: BUN/CREATININE RATIO 21.66; CALCIUM SERUM 9.1 mg/dL (8.4-10.2); CREATININE SERUM 0.6 mg/dL (0.6-1.4); GLOM FILT RATE Estimated 112.4 mL/min (>60); POTASSIUM 3.3 mmol/L (3.5-5.1)
[2016-12-31] MEDS ORDERED: BYSTOLIC10 MG PO (17:28)
[2017-01-01] MEDS ORDERED: ATORVASTATIN CA80 MG PO (00:57)
[2017-01-02 06:16] LABS: HEMATOCRIT 33.5 % (35.0-45.0); HEMOGLOBIN 11.1 gm/dL (12.0-16.0); MEAN CELL VOLUME 92.1 FL (83-96); MEAN CORPUSCULAR HEMOGLOBIN 30.5 PG (28-34); MEAN CORPUSCULAR HGB CONC 33.1 g/dL (30-36); MEAN PLATELET VOLUME 8.7 FL (6.5-11.5); RED BLOOD COUNT 3.63 X10e (3.90-5.30); RED CELL DISTRIBUTION WIDTH 17.2 % (11.0-15.5); WHITE BLOOD COUNT 6.1 X10e3 (4.0-10.5)
[2017-01-02 06:55] LABS: CALCIUM SERUM 9.7 mg/dL (8.4-10.2); CREATININE SERUM 0.5 mg/dL (0.6-1.4); GLOM FILT RATE Estimated 119.4 mL/min (>60); POTASSIUM 3.6 mmol/L (3.5-5.1)
[2017-01-02 08:43] LABS: URINE APPEARANCE CLOUDY; URINE BILIRUBIN NEG (NEG); URINE BLOOD NEG (NEG); URINE COLOR DK YELLOW; URINE GLUCOSE NEG (NEG); URINE KETONE NEG (NEG); URINE LEUKOCYTE ESTERASE 2+ (NEG); URINE NITRATE NEG (NEG); URINE PROTEIN TRACE (NEG); URINE SPECIFIC GRAVITY 1.023 (1.003-1.035)
[2017-01-02 08:44] LABS: CULTURE INDICATED? YES; URINE BACTERIA AUWI 1+ (NEGATIVE); URINE SQUAMOUS EPITHELIAL CELL OCC /[HPF]; UWBCS1 AUWI 25-50 (0-5)
[2017-01-07 06:22] LABS: CREATININE SERUM 0.5 mg/dL (0.6-1.4); GLOM FILT RATE Estimated 119.4 mL/min (>60); POTASSIUM 4.2 mmol/L (3.5-5.1)
[2017-01-07 06:51] LABS: BASOPHIL% 0.7 % (0-2.5); EOSINOPHIL% 0.6 % (0.0-7.0); HEMATOCRIT 32.1 % (35.0-45.0); HEMOGLOBIN 10.5 gm/dL (12.0-16.0); LYMPHOCYTE# 2.3 X10e3 (1.0-3.5); LYMPHOCYTE% 35.6 % (17.0-45.0); MEAN CELL VOLUME 93.8 FL (83-96); MEAN CORPUSCULAR HEMOGLOBIN 30.6 PG (28-34); MEAN CORPUSCULAR HGB CONC 32.6 g/dL (30-36); MEAN PLATELET VOLUME 8.5 FL (6.5-11.5); MONOCYTE# 1.5 X10e3 (0-1.0); MONOCYTE% 23.2 % (3.0-12.0); NEUTROPHIL# 2.6 X10e3 (1.5-7.1); NEUTROPHIL% 39.9 % (40-75); PLATELET COUNT 345 X10e3 (140-420); RED BLOOD COUNT 3.42 X10e (3.90-5.30); RED CELL DISTRIBUTION WIDTH 17.2 % (11.0-15.5); WHITE BLOOD COUNT 6.5 X10e3 (4.0-10.5)
[2017-01-07 06:53] LABS: DIFF IND YES
[2017-01-07 08:00] LABS: PLATELET ESTIMATE NORMAL (NORMAL)
[2017-01-07 08:01] LABS: VACUOLIZATION SL
== END 2017-01-08 20:13 | DRG 551 ==
LOC: CED 12:04 → C5C 17:09 → CED 17:20 → C5C 01-08 20:13
PROVIDERS: Emergency Medicine; Hospitalist; Nurse Practitioner
PROC: B32TYZZ Computerized Tomography (CT Scan) of Left Pulmonary Artery using Other Contrast (ICD-10-PCS; principal; 2017-01-01)
PROC: B32SYZZ Computerized Tomography (CT Scan) of Right Pulmonary Artery using Other Contrast (ICD-10-PCS; 2017-01-01)
DX: S22.088A Other fracture of T11-T12 vertebra, initial encounter for closed fracture (principal); Q79.1 Other congenital malformations of diaphragm; N39.0 Urinary tract infection, site not specified; M54.5 Low back pain; W19.XXXA Unspecified fall, initial encounter; J44.9 Chronic obstructive pulmonary disease, unspecified; R00.0 Tachycardia, unspecified; I10 Essential (primary) hypertension; F32.9 Major depressive disorder, single episode, unspecified; F41.9 Anxiety disorder, unspecified; D69.6 Thrombocytopenia, unspecified; F17.210 Nicotine dependence, cigarettes, uncomplicated; Z71.6 Tobacco abuse counseling; I25.10 Atherosclerotic heart disease of native coronary artery without angina pectoris; E78.5 Hyperlipidemia, unspecified; E87.6 Hypokalemia; D64.9 Anemia, unspecified
CPT/HCPCS: 36415; 71275; 72100; 72131; 73502; 73562; 80048; 81003; 84443; 84484; 85025; 85027; 85049; 85379; 87086; 93005; 93971; 94762; 96361; 96374; 96376; 97116; 97163; 97530; 97535; 99285; G8978-GP; G8979-GP; J1170; J1650; Q9967